=== PATIENT | female | born 1960 | race Caucasian/White ===

== ENCOUNTER → 2016-11-03 | Outpatient (CLI) | payer MEDICAID | LOC: CIMAGING 12:24 | PROVIDERS: ATTEND Family Medicine | DX: Z12.31 Encounter for screening mammogram for malignant neoplasm of breast (principal) | CPT/HCPCS: G0202 ==

== ENCOUNTER 2017-03-23 20:14 | Inpatient (IN) | payer MEDICAID, OTHER ==
[2017-03-23] MEDS ORDERED: CLINDAMYCIN 600 MG/DEXTROSE 50 ML IV ONE (20:50)
[2017-03-23] MEDS ORDERED: NS 1,000 ML IV ONE (20:50)
--- NOTE | 2017-03-23 20:57 | EDPHY ---
H & P Stated Complaint: R jaw swelling/redness post 3 x teeth extraction 1 week ago. Time Seen by Provider: 03/23/17 20:30 HPI/ROS: CHIEF COMPLAINT: Right jaw swelling History by patient HISTORY OF PRESENT ILLNESS: 56-year-old woman presents complaining of pain, swelling and redness on her right lower jaw after tooth extraction 1 week ago. Patient was seen 3 weeks ago and admitted as an inpatient for facial cellulitis related to infected teeth and had an I and D at that time. She was placed on clindamycin and followed up with Oral surgery at [facility] 1 week ago where they removed 3 lower molars. She finished her course of clindamycin and then 3 days ago began having pain and swelling again. She was seen yesterday and started on amoxicillin however she says that the swelling and redness have gotten worse and she is feeling pus draining inside her mouth. She has had a subjective fever at home and feels generally unwell. There has been no vomiting. There is no difficulty breathing or swallowing. REVIEW OF SYSTEMS: As in HPI, and all other systems reviewed and are negative Source: Patient - Personal History Current Tetanus/Diphtheria Vaccine: Yes Current Tetanus Diphtheria and Acellular Pertussis (TDAP): Yes Tetanus Vaccine Date: 2011 - Medical/Surgical History Hx Asthma: Yes Other PMH: hypothyroid, L hip fibro-osseous removal,. chronic pain, asthma, nicorette addiction. arthritis, djd, L4-5, S1 fusion,. balance issues ( partially from meds, prevous chi). ADD. bronchoscopy for aspiration of medication - Social History Smoking Status: Former smoker - Physical Exam Exam: General Appearance: Alert and no distress. Head: normocephalic, atraumatic, no sinus tenderness Face: Positive red swollen tennis ball size area under right mandible with mild tenderness, no fluctuance but firm Eyes: Pupils equal and round no injection. Extraocular movements are intact OP: mucus membranes moist, right posterior molar is absent, positive purulent drainage at site of most proximal removed molar, mild swelling of floor of mouth but soft and non [place] texture, no tonsillar enlargement, no exudates Neck: no meningismus, no bony tenderness Respiratory: Chest is nontender, lungs are clear to auscultation. Cardiac: regular rate and rhythm. Gastrointestinal: Abdomen is soft and nontender, no masses, bowel sounds normal. Musculoskeletal: Neck is supple and nontender. Extremities have full range of motion and are nontender. Skin: No rashes or lesions. Constitutional: Initial Vital Signs Temperature (C) 37.0 C 03/23/17 20:31 Heart Rate 82 03/23/17 20:31 Respiratory Rate 18 03/23/17 20:31 Blood Pressure 149/84 H 03/23/17 20:31 O2 Sat (%) 98 03/23/17 20:31 O2 Delivery Mode Room Air Allergies/Adverse Reactions: Sulfa (Sulfonamide Antibiotics) Allergy (Intermediate, Verified 03/23/17 20:35) Hives Home Medications: Medication Instructions Recorded Levothyroxine Sodium [SYNTHROID] 01/26/10 Albuterol Hfa Anes Only [Proair 2 puffs IH QID 10/09/11 Hfa Icu (RX)] Dextroamphetamine/Amphetamine 15 mg PO 10/09/11 [Dextroamp-Amphet ER 15 mg Cap] Fluticasone Nasal [Flonase Nasal 2 sprays NASAL DAILY 10/09/11 [place] (RX)] Fluticasone/Salmeterol [Advair 1 each IH BID 10/09/11 250-50 Diskus] Gabapentin [Neurontin 100 MG (RX)] 100 mg PO HS 10/09/11 Lasix Unknown Mg Takes Qod 10/09/11 Potasssium Unknown Dose Qod W/ 10/09/11 Lasix Aleve 10/04/13 Claritin 10/04/13 Cymbalta 10/04/13 Amitriptyline HCl 03/23/17 Breo Ellipta 100-25 Mcg INH 03/23/17 Cymbalta 03/23/17 Docusate Calcium 03/23/17 Seroquel 03/23/17 Medical Decision Making ED Course/Re-evaluation: 56-year-old woman presents with persistent and worsening right facial swelling and redness after tooth extraction 1 week ago and recent antibiotic course. Because of the obvious clinical infection patient was started immediately on IV clindamycin. CT scan was obtained which was read by the radiologist as evidence of phlegmon but no clear abscess and no evidence of airway obstruction or involvement. There was concerned about chronic osteo in the mandible. I discussed the case with the hospitalist Dr. Jenkins who accepts the patient for admission for ongoing IV antibiotics. I also discussed the case with Dr. Hanna, on-call for oral surgery who will consult on the patient. I discussed the treatment plan with the patient who understands and is agreeable. - Data Points Laboratory Results: Laboratory Results 03/23/17 21:00 03/23/17 21:00 03/23/17 03/23/17 21:00 21:00 WBC 8.43 10^3/uL 10^3/uL (3.80-9.50) RBC 3.97 10^6/uL L 10^6/uL (4.18-5.33) Hgb 12.1 g/dL L g/dL (12.6-16.3) Hct 35.4 % L % (38.0-47.0) MCV 89.2 fL fL (81.5-99.8) MCH 30.5 pg pg (27.9-34.1) MCHC 34.2 g/dL g/dL (32.4-36.7) RDW 12.5 % % (11.5-15.2) Plt Count 264 10^3/uL 10^3/uL (150-400) MPV 8.2 fL L fL (8.7-11.7) Neut % (Auto) 57.9 % % (39.3-74.2) Lymph % (Auto) 27.9 % % (15.0-45.0) [place] % (Auto) 9.3 % % (4.5-13.0) Eos % (Auto) 3.6 % % (0.6-7.6) Baso % (Auto) 0.9 % % (0.3-1.7) Nucleat RBC Rel Count 0.0 % % (0.0-0.2) Absolute Neuts (auto) 4.89 10^3/uL 10^3/uL (1.70-6.50) Absolute Lymphs (auto) 2.35 10^3/uL 10^3/uL (1.00-3.00) Absolute Monos (auto) 0.78 10^3/uL 10^3/uL (0.30-0.80) Absolute Eos (auto) 0.30 10^3/uL 10^3/uL (0.03-0.40) Absolute Basos (auto) 0.08 10^3/uL 10^3/uL (0.02-0.10) Absolute Nucleated RBC 0.00 10^3/uL 10^3/uL (0-0.01) Immature Gran % 0.4 % % (0.0-1.1) Immature Gran # 0.03 10^3/uL 10^3/uL (0.00-0.10) Sodium 136 mEq/L mEq/L (135-145) Potassium 4.1 mEq/L mEq/L (3.5-5.2) Chloride 100 mEq/L mEq/L (97-110) Carbon Dioxide 22 mEq/l mEq/l (22-31) Anion Gap 14 mEq/L mEq/L (8-16) BUN 21 mg/dL mg/dL (7-23) Creatinine 0.7 mg/dL mg/dL (0.6-1.0) Estimated GFR > 60 Glucose 95 mg/dL mg/dL (70-100) Calcium 9.3 mg/dL mg/dL (8.5-10.4) Medications Given: Discontinued Medications Clindamycin Phosphate/Dextrose (Cleocin 600 Mg (Premix)) 50 mls @ 100 mls/hr IV EDNOW ONE PRN Reason: Protocol Stop: 03/23/17 21:19 Last Admin: 03/23/17 21:04 Dose: 50 mls Sodium Chloride (Ns) 1,000 mls @ 0 mls/hr IV ONCE ONE; Wide Open PRN Reason: Protocol Stop: 03/23/17 20:51 Last Admin: 03/23/17 20:57 Dose: Not Given Departure - Departure [place]position: [place] In[facility] Acute Clinical Impression: Cellulitis, face Condition: Fair Referrals: Isabel Wnyn MD [Primary Care Provider] - As per Instructions
[2017-03-23] MEDS ORDERED: IOPAMIDOL (ISOVUE-300) 100 ML BTL ONE (21:09)
[2017-03-23 21:14] LABS: PLATELET COUNT 264 10^3/uL (150-400)
[2017-03-23] MEDS ORDERED: ONDANSETRON DISINTEGRATING 4 MG TAB PO PRN (22:33)
[2017-03-23] MEDS ORDERED: ONDANSETRON 4 MG/2 ML VIAL IVP PRN (22:33)
[2017-03-23] MEDS ORDERED: ACETAMINOPHEN 325 MG TAB PO PRN (22:33)
--- NOTE | 2017-03-24 01:04 | PDGENHP ---
History and Physical - Chief Complaint Facial pain - History of Present Illness 56 yo F w/ hx of hypothyroid, asthma, neuropathy, TBI, and ADD presented to [facility] with facial pain. She first noticed R facial pain on 02/21 after a recent dental procedure. She was admitted to [facility] where she was treated for infection with I&D and IV antibiotics. She was discharged with oral clindamycin with good improvement. She had 3 teeth pulled one week ago at dental school. She was on clindamycin continuously until 03/19. She returned to the dental school yesterday with worsening symptoms after stopping abx and was placed on Amoxicillin with little improvement. As a result she presented to the [facility] today for further evaluation. She mostly complains of R facial pain and low grade, subjective fevers. She is being admitted for IV abx and surgical consultation. History Information - Allergies/Home Medication List Allergies/Adverse Reactions: Sulfa (Sulfonamide Antibiotics) Allergy (Intermediate, Verified 03/23/17 20:35) Hives Home Medications: Levothyroxine Sodium [SYNTHROID] 01/26/10 [Last Taken 11/10/11 07:00] Albuterol Hfa Anes Only [Proair Hfa Icu (RX)] 2 puffs IH QID 10/09/11 [Last Taken 11/10/11 07:00] Dextroamphetamine/Amphetamine [Dextroamp-Amphet ER 15 mg Cap] 15 mg PO 10/09/11 [Last Taken 11/10/11 07:00] Fluticasone Nasal [Flonase Nasal [place] (RX)] 2 sprays NASAL DAILY 10/09/11 [ Last Taken 11/10/11 07:00] Fluticasone/Salmeterol [Advair 250-50 Diskus] 1 each IH BID 10/09/11 [Last Taken 11/10/11 07:00] Gabapentin [Neurontin 100 MG (RX)] 100 mg PO HS 10/09/11 [Last Taken 11/09/11 20 :00] Lasix Unknown Mg Takes Qod 10/09/11 [Last Taken 11/10/11 07:00] Potasssium Unknown Dose Qod W/ Lasix 10/09/11 [Last Taken 11/10/11 07:00] Aleve 10/04/13 [Last Taken Unknown] Claritin 10/04/13 [Last Taken Unknown] Cymbalta 10/04/13 [Last Taken Unknown] Amitriptyline HCl 03/23/17 [Last Taken Unknown] Breo Ellipta 100-25 Mcg INH 03/23/17 [Last Taken Unknown] Cymbalta 03/23/17 [Last Taken Unknown] Docusate Calcium 03/23/17 [Last Taken Unknown] Seroquel 03/23/17 [Last Taken Unknown] I have personally reviewed and updated: family history, medical history - Past Medical History arthritis, asthma Additional medical history: Neuropathy. ADD. TBI - Surgical History Reports: spinal surgery Additional surgical history: TBI c/b epidural hematoma requiring evacuation - Family History Positive for: cancer, CAD - Social History Smoking Status: Former smoker Review of Systems Review of Systems: ROS: 10pt was reviewed & negative except for what was stated in HPI & below Physical Exam Physical Exam: Temp Pulse Resp BP Pulse Ox 36.6 C 87 16 145/82 H 97 03/24/17 00:32 03/24/17 00:32 03/24/17 00:32 03/24/17 00:32 03/24/17 00:32 Constitutional: no apparent distress, uncomfortable Eyes: PERRL, EOMI Ears, Nose, Mouth, Throat: moist mucous membranes, other (R mandibular swelling , erythema. R mandibular gum s/p tooth extractions) Cardiovascular: regular rate and rhythym, no murmur, rub, or gallop Respiratory: no respiratory distress, no rales or rhonchi Gastrointestinal: normoactive bowel sounds, soft, non-tender abdomen Skin: warm, normal color Musculoskeletal: full muscle strength, no muscle tenderness Neurologic: AAOx3, CN II-XII Intact Psychiatric: interacting appropriately, not anxious Lab Data & Imaging Review 03/23/17 21:00 03/23/17 21:00 WBC 8.43 10^3/uL (3.80-9.50) 03/23/17 21:00 RBC 3.97 10^6/uL (4.18-5.33) L 03/23/17 21:00 Hgb 12.1 g/dL (12.6-16.3) L 03/23/17 21:00 Hct 35.4 % (38.0-47.0) L 03/23/17 21:00 MCV 89.2 fL (81.5-99.8) 03/23/17 21:00 MCH 30.5 pg (27.9-34.1) 03/23/17 21:00 MCHC 34.2 g/dL (32.4-36.7) 03/23/17 21:00 RDW 12.5 % (11.5-15.2) 03/23/17 21:00 Plt Count 264 10^3/uL (150-400) 03/23/17 21:00 MPV 8.2 fL (8.7-11.7) L 03/23/17 21:00 Neut % (Auto) 57.9 % (39.3-74.2) 03/23/17 21:00 Lymph % (Auto) 27.9 % (15.0-45.0) 03/23/17 21:00 [place] % (Auto) 9.3 % (4.5-13.0) 03/23/17 21:00 Eos % (Auto) 3.6 % (0.6-7.6) 03/23/17 21:00 Baso % (Auto) 0.9 % (0.3-1.7) 03/23/17 21:00 Nucleat RBC Rel Count 0.0 % (0.0-0.2) 03/23/17 21:00 Absolute Neuts (auto) 4.89 10^3/uL (1.70-6.50) 03/23/17 21:00 Absolute Lymphs (auto) 2.35 10^3/uL (1.00-3.00) 03/23/17 21:00 Absolute Monos (auto) 0.78 10^3/uL (0.30-0.80) 03/23/17 21:00 Absolute Eos (auto) 0.30 10^3/uL (0.03-0.40) 03/23/17 21:00 Absolute Basos (auto) 0.08 10^3/uL (0.02-0.10) 03/23/17 21:00 Absolute Nucleated RBC 0.00 10^3/uL (0-0.01) 03/23/17 21:00 Immature Gran % 0.4 % (0.0-1.1) 03/23/17 21:00 Immature Gran # 0.03 10^3/uL (0.00-0.10) 03/23/17 21:00 Sodium 136 mEq/L (135-145) 03/23/17 21:00 Potassium 4.1 mEq/L (3.5-5.2) 03/23/17 21:00 Chloride 100 mEq/L (97-110) 03/23/17 21:00 Carbon Dioxide 22 mEq/l (22-31) 03/23/17 21:00 Anion Gap 14 mEq/L (8-16) 03/23/17 21:00 BUN 21 mg/dL (7-23) 03/23/17 21:00 Creatinine 0.7 mg/dL (0.6-1.0) 03/23/17 21:00 Estimated GFR > 60 03/23/17 21:00 Glucose 95 mg/dL (70-100) 03/23/17 21:00 Calcium 9.3 mg/dL (8.5-10.4) 03/23/17 21:00 Imaging Review: Imaging Impressions Neck CT 03/23/17 20:51 Impression: Evidence of tooth extraction recently of the 28th through 31st teeth left mandible, with extreme lucency of the bone and absence of the anterior and inferior cortex suggesting underlying osteomyelitis. Surrounding phlegmon and inflammatory change. Results called and discussed with Ana Srivastava M.D., on March 23, 2017 at 2232. Assessment & Plan Assessment: 56 yo F w/ hx of hypothyroid, asthma, neuropathy, TBI, and ADD presented to [facility] with facial cellulitis and likely underlying mandibular OM. Plan: 1. Facial cellulitis - Originating from odontogenic infection and likely complicated by underlying osteomyelitis per CT findings. Patient initially noted infection on 02/21 and has had recurrent issues since. She was on clindamycin from 02/21 until 03/19. Just a few days after stopping antibiotics her symptoms returned. Amoxicillin did not help improver her symptoms. - Blood cultures, Zosyn IV - OMF consulted, will see patient in the morning - Maintain NPO for now until surgery can evaluate - Infectious disease consult placed 2. Asthma - No e/o acute exacerbation. On Breo and albuterol PRN as outpatient. 3. Hx TBI - Complicated by ADD and insomnia. 4. OA- b/l knees 5. Hypothyroid - On LTX as outpatient. Diet - NPO Code - Full Ppx - SCDs Dispo - Admit to observation status
[2017-03-24] MEDS ORDERED: AMITRIPTYLINE HCL 100 MG TAB PO ONE (01:09)
[2017-03-24] MEDS ORDERED: GABAPENTIN 300 MG CAP PO ONE (01:10)
[2017-03-24] MEDS: oxyCODONE IR 5 MG TAB PO PRN ×4 (01:29→20:59)
[2017-03-24] MEDS: PIPERACILLIN/TAZO 3.375 GM/DEX 50 ML IV SCH ×5 (01:30→23:52)
[2017-03-24 05:34] LABS: PLATELET COUNT 250 10^3/uL (150-400)
[2017-03-24] MEDS ORDERED: CLINDAMYCIN 900 MG/DEXTROSE 50 ML IV SCH (06:00)
[2017-03-24] MEDS: LIDOCAINE 5% 1 EA PATCH TD SCH ×2 (09:02→12:57)
--- NOTE | 2017-03-24 09:49 | PDCONSULT ---
Ip Litigation Associate Note: Oral Surgery consultation: With regards to Bonny Reich, 56 yo F 10 day s/p extraction teeth lower right posterior at [facility]. Reports swelling of lower right posterior region since mid-February and significant swelling starting 48 hrs ago when she stopped Clindamycin and started Amoxicillin. Patient reports that the teeth were mobile at time of extraction and were "easy" to get out. Reviewed PMH, review of systems. Meds: Zosyn IV PE: AAOx4, no acute distress H: Right lower facial edema and firmness which extends past midline of submandibular region. Erythema of right jowl. Unable to palpate right mandibular border due to edema rolling over from buccal vestibule to right submandibular region. Mild tenderness to palpation. O: Extration sites right mandibular posterior closed, no drainage, edema to alveolar crest and firm of right FOM, unable to gain bimanual palpation due to firmness of FOM. Uvula midline. Right mandibular buccal vestibule firmness and significant edema. DESTINY 40+mm w/o difficulty on opening. MP 1. Good OH. Neck: No gross CLAD, trachea midline, neg dysphagia, neg dysphonia, neg dyspnea Imaging: CT neck / contrast: Right mandibular vestibule with expansion of periosteum at right posterior, extraction sites present. Fat stranding right mandibular region. Trachea midline. A: 10 days s/p extraction 3 teeth mandibular right posterior with right vestibular and submandibular abscess with poor response to antibiotic therapy. P: NPO at 12am 03/25/17 To OR with [facility] for I&D right mandibular posterior. Continue IV Zosyn Vee Mckinney DDS FS [phone]
[2017-03-24] MEDS ORDERED: FLUTICASONE/SALMETER 250/50MCG DISKUS IH SCH (11:00)
[2017-03-24] MEDS ORDERED: HYDROCODONE/APAP 5/325 TAB PO PRN (11:00)
[2017-03-24] MEDS ORDERED: ALBUTEROL HFA ANES ONLY 200 PUFFS/8.5 GM MDI IH PRN (11:00)
[2017-03-24] MEDS ORDERED: LISDEXAMFETAMINE DIMESYLATE 30 MG PO SCH (11:00)
[2017-03-24] MEDS: DULoxetine 60 MG CAP PO SCH ×2 (12:22→20:59)
[2017-03-24] MEDS: FUROSEMIDE 20 MG TAB PO SCH (12:22)
[2017-03-24] MEDS: POTASSIUM CL 10 MEQ TAB PO SCH (12:23)
[2017-03-24] MEDS: LEVOTHYROXINE 50 MCG TAB PO SCH (12:23)
[2017-03-24] MEDS: FLUTICASONE NASAL 120 SPRAYS/16 GM MDI EACHNARE SCH (12:26)
[2017-03-24] MEDS: CETIRIZINE 10 MG TAB PO SCH (12:56)
[2017-03-24] MEDS: DOCUSATE SODIUM 100 MG CAP PO SCH (12:56)
--- NOTE | 2017-03-24 13:47 | HOSPPROG ---
Hospitalist Progress Note Assessment/Plan: 56 yo F w/ hx of hypothyroid, asthma, neuropathy, TBI, and ADD presented to [facility] with facial cellulitis and likely underlying infection. First encounter,chart reviewed. D/W Dr Mckinney. Plan: 1. Facial cellulitis - Originating from odontogenic infection Patient initially noted infection on 02/21 and has had recurrent issues since. She was on clindamycin from 02/21 until 03/19. Just a few days after stopping antibiotics her symptoms returned. Amoxicillin did not help improver her symptoms. Blood cultures, Zosyn IV OMF consulted, appreciate assistance Infectious disease consult placed 2. Asthma - No e/o acute exacerbation. On Breo and albuterol PRN as outpatient. 3. Hx TBI - Complicated by ADD and insomnia. 4. OA- b/l knees 5. Hypothyroid - On LTX as outpatient. Diet - regular Code - Full Ppx - SCDs Dispo - Change to inpt requires surgical intervention in am cont supportive care IV abx and pain meds Subjective: Feeling ok. Having pain in face. No other specific issues. Objective: Vital Signs Temp Pulse Resp BP Pulse Ox 36.6 C 73 14 120/76 92 03/24/17 08:00 03/24/17 08:00 03/24/17 08:00 03/24/17 08:00 03/24/17 08:00 Laboratory Results 03/24/17 04:20 03/24/17 04:20 03/23/17 03/24/17 03/25/17 05:59 05:59 05:59 Intake Total 50 Balance 50 - Physical Exam Constitutional: no apparent distress, appears nourished, uncomfortable Eyes: PERRL, anicteric sclera, EOMI Ears, Nose, Mouth, Throat: moist mucous membranes, hearing normal, ears appear normal, other (swelling) Cardiovascular: regular rate and rhythym, No JVD, No edema Respiratory: no respiratory distress, no rales or rhonchi, reduced air movement Gastrointestinal: normoactive bowel sounds, No tenderness, No ascites Skin: warm, erythema, No mottled Musculoskeletal: full muscle strength, normal joint ROM, no joint effusions Neurologic: AAOx3 Psychiatric: interacting appropriately, not anxious, not encephalopathic, thought process linear ICD10 Worksheet Patient Problems: Problems Problem Status Onset Cellulitis, face Acute
--- NOTE | 2017-03-24 14:32 | PDMN ---
Medical Necessity Medical necessity: C/M review: Patient meets INPT criteria under [facility] M-70 Cellulitis: Acute and persistent worsening facial cellulitis requiring planned Infectious disease consult, 03/25/2017 surgical intervention, ongoing IV Zosyn Q 6 hrs., comorbid history of odontogenic infection initially noted 02/21/2017 with recurrent issues, treated with oral clindamycin from -03/19/17, a few days after stiopping oral antibiotics, symptoms returned, amoxicillin did not improve symptoms, failed outpt. therapy, asthma, hypothyroidism, history of traumatic brain injury, ADD, insomnia. 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
[2017-03-24] MEDS: IBUPROFEN 600 MG TAB PO PRN ×2 (15:57→21:04)
--- NOTE | 2017-03-24 16:33 | ASMTCMCOM ---
CM Note CM Note Notes: Pt. is a 56-year-old disabled woman admitted due to facial cellulitis from having an infection since February. Recently more teeth pulled. Hx. ADD, insomnia, TBI, and asthma. Pt. may need IV antibiotics at d/c. [facility] patient. CM to follow for d/c POC. Date Signed: 03/24/2017 04:32 PM Electronically Signed By:Lilibeth King LCSW
--- NOTE | 2017-03-24 18:41 | GCON ---
[f rep st] CONSULTATION INFECTIOUS DISEASE CONSULTATION DATE OF CONSULTATION: 03/24/2017 REFERRING PHYSICIAN: Abdirahman Jenkins MD REASON FOR CONSULTATION: Facial cellulitis with abscess and osteomyelitis. CHIEF COMPLAINT: Swelling and pain of the right jaw. HISTORY OF PRESENT ILLNESS: This is a 56-year-old female, with a past medical history sign ificant for hypothyroidism, asthma, neuropathy, TBI, who came in with ongoing facial pain and swellin g. History dates back to February 21, when she recently had a dental procedure. A few days after that, she got admitted to [facility] after increasing swelling and pain. She apparently an I and D and was on antibiotics there. She was discharged on clindamycin and had done well. She continued to tejeda ve pain in the lower part of her right gum line and she ended up having 3 more teeth pulled at [facility]. She was on antibiotics during that time and completed her last dose around March 18. Because of new swelling, pain and redness, she was started on amoxicillin a couple of days ago and that did not improve her symptoms, so she came in here for further evaluation. She had a neck CT done, which showed lucency of the bone, and absence of anterior inferior cortex sug gesting possible underlying osteomyelitis and phlegmonous inflammatory changes as well surrounding th e area. She had blood cultures x2 sets drawn and those are pending. She was started empirically on Zosyn. Infectious Disease is now consulted for further evaluation and opinion. REVIEW OF SYSTEMS: GENERAL: She has had some low-grade fevers. No shaking chills. HEAD: Mild chr onic headaches. EYES: No change in vision. ENT: No sore throat, difficulty swallowing, ear pain o r ear drainage. CARDIOVASCULAR: No chest pain or rapid heartbeat. RESPIRATORY: No shortness of br eath, cough, or sputum production. ABDOMEN: No nausea, vomiting, abdominal pain, diarrhea. She has some mild nausea. : No dysuria. MUSCULOSKELETAL: No increased joint pains or muscle aches. SKI N: No other rashes. PAST MEDICAL HISTORY: Significant for hypothyroidism, asthma, neuropathy, traumatic brain injury, AD D, osteoarthritis. PAST SURGICAL HISTORY: Significant for spine surgery, epidural hematoma requiring evacuation. ALLERGIES: To Bactrim, which gives her a rash. SOCIAL HISTORY: She is a former smoker. She drinks alcohol socially. FAMILY HISTORY: Significant for cancer and coronary artery disease. MEDICATIONS: As per MAR. PHYSICAL EXAMINATION: VITAL SIGNS: Temperature currently 36.6, pulse is 73, blood pressure 120/76, respiratory rate 14, saturation 92% on room air. GENERAL: Patient is resting in the chair, in no ac richard respiratory distress. Awake, alert and oriented x3. HEENT: Head is normocephalic, atraumatic. Pupils are equally round and reactive to light. Oropharynx: She is able to open her mouth moderate ly. She has pain involving the right side. She has swelling involving the lower jawline and in the submandibular area with some mild erythema at left base. It is indurated and tender on palpation. S he does have missing teeth on the right posterior gumline with intermittent erythema noted. It is te nder to touch. No thrush. CARDIOVASCULAR: S1, S2. Regular rate and rhythm. No murmurs appreciate d. RESPIRATORY: Clear to auscultation bilaterally. No rhonchi or rales. ABDOMEN: Positive bowel sounds in all quadrants. Soft, nontender, nondistended. No organomegaly appreciated. EXTREMITIES: No lower extremity edema. MUSCULOSKELETAL: No joint effusions or pain on palpation of the joints. LABORATORY DATA: White blood cell count is 7.9, hemoglobin 12.1, platelets are 215, neutrophil count is 59%. Sodium 139, potassium 4.5, chloride 104, bicarb 25, BUN is 18, creatinine is 0.8. LFTs are within normal range. C-reactive protein is 27. Blood cultures in 2 sets are pending. Imaging results have been reviewed by me and stated above. ASSESSMENT: Right submandibular swelling that is likely abscess and cellulitis with possible underly ing osteomyelitis. PLAN: At this point in time, the oral surgeon has come by, and we appreciate their assistance in car e for this patient. They are planning to take her to the OR tomorrow for I and D. Recommend taking cultures and taking a biopsy to assess for osteomyelitis. Continue with Zosyn therapy for now. Awai t blood cultures. Plan of care was discussed in detail with the patient. I thank you very much for the opportunity to care for your patient in consultation. /[id number]/MODL
[2017-03-24] MEDS: GABAPENTIN 100 MG CAP PO SCH (20:59)
[2017-03-24] MEDS: AMITRIPTYLINE HCL 100 MG TAB PO SCH (21:00)
[2017-03-24] MEDS: PATCH REMOVAL 1 EA PATCH TD SCH (21:01)
[2017-03-24] MEDS: FLUTICASONE/SALMETER 250/50MCG DISKUS IH SCH (21:15)
[2017-03-25] MEDS: PIPERACILLIN/TAZO 3.375 GM/DEX 50 ML IV SCH ×4 (05:11→23:44)
--- NOTE | 2017-03-25 07:33 | PDHPUP ---
History & Physical Update H&P update statement: This history and physical update is based on an assessment of the patient which was completed after admission or registration (within 24 hours), but prior to the surgery/procedure.
[2017-03-25] MEDS ORDERED: LIDOCAINE 1% 300 MG/30 ML SDV ONE (07:41)
[2017-03-25] MEDS ORDERED: BUPIVACAINE/EPI 0.5% 30 ML SDV ONE (07:47)
--- NOTE | 2017-03-25 08:06 | PDANEPAE ---
ANE History of Present Illness mandibular abscess here for I+D ANE Past Medical History - Cardiovascular History Hx CHF / Valvular Disease: Yes - Pulmonary History Hx Asthma/Reactive Airway Disease: Yes Hx Oxygen in Use at Home: Yes Hx Sleep Apnea: No Sleep Apnea Screening Result - Last Documented: Positive - Endocrine History Hx Diabetes: No Hypothyroid: Yes ANE Review of Systems Review of Systems: - Exercise capacity Exercise capacity: >=4 METS ANE Patient History - Allergies Allergies/Adverse Reactions: Sulfa (Sulfonamide Antibiotics) Allergy (Intermediate, Verified 03/23/17 20:35) Hives - Home Medications Home medications: home medication list seen and reviewed Home Medications: Levothyroxine Sodium [SYNTHROID] 50 mcg PO DAILY AT 10AM 01/26/10 [Last Taken ] Albuterol Hfa Anes Only [Proair Hfa Icu (RX)] 2 puffs IH QID PRN 10/09/11 [Last Taken 11/10/11 07:00] Fluticasone Nasal [Flonase Nasal [place] (RX)] 2 sprays NASAL DAILY 10/09/11 [ Last Taken 03/23/17] Fluticasone/Salmeterol [Advair 250-50 Diskus] 1 each IH BID 10/09/11 [Last Taken 03/23/17] Gabapentin [Neurontin 100 MG (RX)] 600 mg PO HS 10/09/11 [Last Taken 03/23/17] AMITRIPTYLINE HCL [Amitriptyline 100 mg] 100 mg PO HS 03/24/17 [Last Taken 03/23] Aspirin [Aspirin 81mg (*)] 81 mg PO DAILY 03/24/17 [Last Taken 03/23/17] Calcium Polycarbophil [FIBERCON] 625 mg PO DAILY 03/24/17 [Last Taken 03/23/17] DULoxetine [Cymbalta 60 MG (*)] 60 mg PO BID 03/24/17 [Last Taken 03/23/17] Docusate Sodium [Colace 100 MG (*)] 100 mg PO DAILY 03/24/17 [Last Taken ] Ferrous Sulfate [Ferrous Sulf 325 MG (*)] 325 mg PO DAILY 03/24/17 [Last Taken 03/23/17] Furosemide [Lasix 20 MG (*)] 20 mg PO DAILY 03/24/17 [Last Taken 03/23/17] Herbals/Supplements -Info Only 1 ea PO DAILY 03/24/17 [Last Taken Unknown] Hydrocodone/Acetaminophen [[place] 5/325 (*)] 1 - 2 tab PO Q6H PRN 03/24/17 [Last Taken 03/23/17] Ibuprofen [Motrin (*)] 600 mg PO TIDMEAL 03/24/17 [Last Taken 03/23/17] Lidocaine 5% [Lidoderm 5% Patch (*)] 2 ea TD DAILY 03/24/17 [Last Taken 03/24/17 ] Lisdexamfetamine Dimesylate [Vyvanse] 30 mg PO DAILY 03/24/17 [Last Taken ] Loratadine [Claritin] 10 mg PO DAILY 03/24/17 [Last Taken 03/23/17] [place]-3 Fatty Acids [Fish Oil 1000 mg (*)] 1,000 mg PO DAILY 03/24/17 [Last Taken 03/23/17] Potassium Chloride 10 meq PO DAILY 03/24/17 [Last Taken 03/23/17] clonIDINE [Catapres (*)] 0.1 mg PO TID 03/24/17 [Last Taken 03/23/17] - NPO status NPO Status: no food or drink >8 hours NPO Since - Liquids (Date): 03/25/17 NPO Since - Liquids (Time): 00:00 NPO Since - Solids (Date): 03/25/17 NPO Since - Solids (Time): 00:00 - Anes Hx Anes Hx: no prior problems - Smoking Hx Smoking Status: Former smoker - Alcohol Use Alcohol Use: Rarely - Family Anes Hx Family Anes Hx: none ANE Labs/Vital Signs - Labs Result Diagrams: 03/24/17 04:20 03/24/17 04:20 - Vital Signs Blood Pressure: 129/84 Heart Rate: 75 Respiratory Rate: 16 O2 Sat (%): 96 Height: 170.18 cm Weight: 111.13 kg ANE Physical Exam - Airway Neck exam: FROM Mallampati Score: Class 3 Mouth exam: poor dentition - Pulmonary Pulmonary: no respiratory distress - Cardiovascular Cardiovascular: regular rate and rhythym - ASA Status ASA Status: III ANE Anesthesia Plan Anesthesia Plan: general endotracheal anesthesia
[2017-03-25] MEDS ORDERED: MIDAZOLAM 2 MG/2 ML VIAL IVP ONE (08:07)
[2017-03-25] MEDS ORDERED: MIDAZOLAM 2 MG/2 ML VIAL ONE ×2 (08:11→08:14)
[2017-03-25] MEDS ORDERED: fentaNYL 100 MCG/2 ML INJ ONE ×3 (08:12→09:37)
[2017-03-25] MEDS ORDERED: PROPOFOL 200 MG/20 ML VIAL ONE (08:13)
[2017-03-25] MEDS ORDERED: ROCURONIUM 50 MG/5 ML VIAL ONE (08:14)
[2017-03-25] MEDS ORDERED: LIDOCAINE 2% 100 MG/5 ML SYR ONE (08:14)
[2017-03-25] MEDS ORDERED: NON-FORMULARY NEW DRUG (Loratadine [Claritin] 10 MG) PO SCH (09:00)
[2017-03-25] MEDS ORDERED: NON-FORMULARY NEW DRUG (Calcium Polycarbophil [Fibercon] 625 MG) PO SCH (09:00)
[2017-03-25] MEDS ORDERED: Herbals/Supplements -Info Only PO SCH (09:00)
--- NOTE | 2017-03-25 09:34 | POSTOPPROG ---
Post Op Note Date of Operation: 03/25/17 Surgeon: Vee Mckinney Pre-op Diagnosis: right submandibular abscess/possible osteomyelitis right mandible Post-op Diagnosis: Osteolytic infection right mandible, right submandibular cellulitis Procedure: Extraoral I and D right mandible, D and C right mandible, Ext #27 tooth Findings: Loose bony fragment right mandible Inf/Abcess present in the surg proc area at time of surgery?: Yes Depth: Deep Incisional (Fascial) (right submandibular/buccal abscess) EBL: Minimal Total fluids administered: 1L Complications: None Drains: [place] (right neck) Specimen(s): 1) Right mandible 2) Culture right submandibular
[2017-03-25] MEDS ORDERED: ONDANSETRON 4 MG/2 ML VIAL IVP PRN (09:35)
[2017-03-25] MEDS ORDERED: NALOXONE HCL 0.4 MG/ML INJ IVP PRN (09:35)
--- NOTE | 2017-03-25 09:35 | POSTANESTH ---
Post Anesthetic Evaluation Cardiovascular Status: Normal, Stable, Similar to Pre-Op Cond Respiratory Status: Normal, Stable, Similar to Pre-op Cond. Level of Consciousness/Mental Status: Can Participate in Eval, Alert and Oriented Pain Control: Adequate, Prn Tx Ordered Nausea/Vomiting Control: Adequate, Prn Tx Ordered Complications Possibly Related to Anesthesia: None Noted
[2017-03-25] MEDS: fentaNYL 100 MCG/2 ML INJ IVP PRN ×3 (09:41→10:16)
[2017-03-25] MEDS ORDERED: HYDROmorphONE/DILAUDID 1 MG/ML INJ ONE (10:00)
[2017-03-25] MEDS: HYDROmorphONE/DILAUDID 1 MG/ML INJ IVP PRN ×2 (10:01→10:20)
--- NOTE | 2017-03-25 10:09 | SUROPNOTE ---
[facility] Operative Report - Surgery Preoperative Diagnosis: Right submandibular abscess of odontogenic origin Postoperative diagnosis: Right submandibular cellulitis with possible right mandible osteomyelitis Procedure: 1) Right mandibular intraoral debridement and curettage 2) Extraction #27 3) Extraoral right submandibular incision and drainage Surgeon: Vee Mckinney DDS Anesthesia: GETA with 7cc Marcaine 0.5% with 1:200k epi EBL: 25 ml IVF: 1 liter crystalloid Culture: 1) Right submandibular region Findings: Osteolytic infection right mandible with mobility of tooth #27, right submandibular celluitis Drains: Darlin right neck Specimens: 1) right mandible Complications: None Indication: Right facial abscess with right lower lip paresthesia Benefits, risks, and alternatives were explained to the patient who voiced understanding of the information. Her questions sought and answered. Consent signed and patient marked and witnessed by OR staff. Bonny was brought back to OR by staff, positioned supine on OR bed and secured. Monitors placed including but not limited to blood pressure cuff, EKG, and pulse oximeter and noted to be functioning property. GA induced and patient orally intubated and tube secured to left side of mouth by anesthesia. Eyes closed and covered with tape. Throat pack was placed. Patient was prepped and drapped in sterile fashion. A time out was called and all teams were in agreement of patient and procedure. Intraoral local given and additional needle used for local anesthesia to the skin of right neck. Bite block placed left side of mouth. 15 blade used to make crestal incision from #27 to retromolar region. Periosteal used to reflect buccal and lingual FTMPF. Gross granulation tissue present from #27 distal to 31 region. Buccal plate absent from #31 area to distal of 26 to the level of the right mental foramina. Thick, tenuous periosteum present. Bony sequestrum removed and sent for specimen. Debridement of previous extraction sites with curetted and irrigated well. #27 with 2+ mobility removed with periosteal due to significant bone loss and encompassed in granulation tissue. WESTLEY lying in the inferior aspect of surgical site due to gross bone loss. Significant hemorrhage of tissue during debridement. Periosteal used to create lingual subperiosteal envelope, no purulence encountered. Irrigated site well and surgicel placed into surgical site to gain hemostasis. Primary closure with 3-0 CG, interrupted with 5mm between all sutures in order for drainage. Marking pen used to deena mandibular border and 1.5cm blow border for extraoral incision site. Prepped skin with betadine swabs x3. 15 blade used to make 2cm submandibular incision. Blunt dissection with hemostat to mandibular border. Lingual and buccal access without any drainage. Cultured submandibular access. Placed darlin to lingual border and secured with 3-0 silk suture 120cc of NS irrigation used. Irrigated mouth with NS, throat pack removed with suction and bite block removed. Patient's face cleaned and dried. Fluffs and gauze wrap placed over darlin/extraoral site for drainage. Tape removed from patient's eyes. Patient awoke in OR and extubated. Transferred to PACU w/o complications. Patient to transfer back to floor for recovery. Vee Mckinney DDS
[2017-03-25] MEDS: FLUTICASONE/SALMETER 250/50MCG DISKUS IH SCH ×2 (10:29→21:39)
[2017-03-25] MEDS: IBUPROFEN 600 MG TAB PO PRN ×2 (10:55→16:48)
[2017-03-25] MEDS: oxyCODONE IR 5 MG TAB PO PRN ×3 (10:56→21:30)
[2017-03-25] MEDS: DULoxetine 60 MG CAP PO SCH ×2 (10:56→20:29)
[2017-03-25] MEDS: LEVOTHYROXINE 50 MCG TAB PO SCH (11:28)
[2017-03-25] MEDS: CETIRIZINE 10 MG TAB PO SCH (11:28)
[2017-03-25] MEDS: POTASSIUM CL 10 MEQ TAB PO SCH (11:28)
[2017-03-25] MEDS: DOCUSATE SODIUM 100 MG CAP PO SCH (11:28)
[2017-03-25] MEDS: FERROUS SULFATE 325 MG TAB PO SCH (11:29)
[2017-03-25] MEDS: FUROSEMIDE 20 MG TAB PO SCH (11:34)
[2017-03-25] MEDS: FLUTICASONE NASAL 120 SPRAYS/16 GM MDI EACHNARE SCH (11:36)
[2017-03-25] MEDS: LIDOCAINE 5% 1 EA PATCH TD SCH ×2 (11:37)
--- NOTE | 2017-03-25 11:37 | ASMTCMCOM ---
CM Note CM Note Notes: Patient in surgery today for jaw infection. Likely to need termite control servicer IV antibiotics. Will place referrals for infusion services. CM to follow. Date Signed: 03/25/2017 11:36 AM Electronically Signed By:Sherita Olivia RN
[2017-03-25] MEDS: PSYLLIUM METAMUCIL 1 PKT PO SCH (11:38)
[2017-03-25] MEDS: LISDEXAMFETAMINE DIMESYLATE 30 MG PO SCH (11:38)
--- NOTE | 2017-03-25 12:59 | HOSPPROG ---
Hospitalist Progress Note Assessment/Plan: 56 yo F w/ hx of hypothyroid, asthma, neuropathy, TBI, and ADD presented to [facility] [place] with facial cellulitis and likely underlying infection. D/W Dr Mckinney. Plan: 1. Facial cellulitis - Originating from odontogenic infection Patient initially noted infection on 02/21 and has had recurrent issues since. She was on clindamycin from 02/21 until 03/19. Just a few days after stopping antibiotics her symptoms returned. Amoxicillin did not help improver her symptoms. Blood cultures, Zosyn IV OMF to OR thsi am, appreciate assistance Infectious disease following 2. Asthma - No e/o acute exacerbation. On Breo and albuterol PRN as outpatient. 3. Hx TBI - Complicated by ADD and insomnia. 4. OA- b/l knees 5. Hypothyroid - On LTX as outpatient. 6. Osteo- POD #0 drain in jaw cultures pending Diet - regular Code - Full Ppx - SCDs Dispo -Will require IV abx cont supportive care Subjective: Tired after surgery. No pain currently. Objective: Vital Signs Temp Pulse Resp BP Pulse Ox 36.1 C 74 18 130/81 H 94 03/25/17 12:44 03/25/17 12:44 03/25/17 12:44 03/25/17 12:44 03/25/17 12:44 Microbiology 03/25/17 08:45 Gram Stain - Final Other - Tissue 03/25/17 08:45 Gram Stain - Final Other - Eswab 03/25/17 08:45 Mycobacterial Smear (JIM) - Final Other - Eswab Mycobacterial Culture - Final 03/24/17 03/25/17 03/26/17 05:59 05:59 05:59 Intake Total 840 820 Balance 840 820 - Physical Exam Constitutional: appears nourished, not in pain, uncomfortable Eyes: PERRL, anicteric sclera, EOMI Ears, Nose, Mouth, Throat: ears appear normal, poor dentition, other (zafar drain) Cardiovascular: regular rate and rhythym, No JVD, No edema Respiratory: no respiratory distress, no rales or rhonchi, reduced air movement Gastrointestinal: normoactive bowel sounds, No tenderness, No ascites Skin: warm, erythema, No mottled Musculoskeletal: normal joint ROM, no joint effusions, generalized weakness Neurologic: AAOx3 Psychiatric: not anxious, not encephalopathic, poor insight, poor judgement ICD10 Worksheet Patient Problems: Problems Problem Status Onset Cellulitis, face Acute
--- NOTE | 2017-03-25 16:15 | PCMIDPN ---
Assessment/Plan: Assessment/Plan: 1. Right submandibular abscess with likely right mandible osteomyelitis: - s/p i & D and biopsy - Currently on zosyn. Likely to narrow to invanz - Awaiting cultures, path. - Discussed picc line, likely prolonged course of IV antibiotics, follow up etc. -labs stable. - blood cx 03/23 ngtd -abscess cs: GS no org, culture pending. REviewed with patient. Meds zosyn Subjective: afebrile. s/p surgery. feeling better. less swelling. drain in place. denies diarrhea or sob. Objective: Vital Signs Temp Pulse Resp BP Pulse Ox 37 C 81 16 101/62 95 03/25/17 15:48 03/25/17 15:48 03/25/17 15:48 03/25/17 15:48 03/25/17 15:48 Microbiology 03/25/17 08:45 Gram Stain - Final Other - Tissue 03/25/17 08:45 Gram Stain - Final Other - Eswab 03/25/17 08:45 Mycobacterial Smear (JIM) - Final Other - Eswab Mycobacterial Culture - Final 03/24/17 03/25/17 03/26/17 05:59 05:59 05:59 Intake Total 840 820 Output Total 600 Balance 840 220 C-Reactive Protein 27.0 mg/L (<10.0) H 03/24/17 04:20 - Physical Exam General Appearance: alert, no apparent distress EENT: other (swelilng induration submandibular region. drain noted. tender along right mandible.) Respiratory: lungs clear Cardiac/Chest: regular rate, rhythm Extremities: No swelling Abdomen: normal bowel sounds, non-tender, soft, No distended Skin: erythema (minimal if any submandibular region) ICD10 Worksheet Patient Problems: Problems Problem Status Onset Cellulitis, face Acute
[2017-03-25] MEDS: GABAPENTIN 100 MG CAP PO SCH (20:29)
[2017-03-25] MEDS: AMITRIPTYLINE HCL 100 MG TAB PO SCH (20:29)
[2017-03-25] MEDS: CHLORHEXIDINE GLUCONATE 15 ML UDL PO SCH (20:30)
[2017-03-25] MEDS: PATCH REMOVAL 1 EA PATCH TD SCH (20:30)
[2017-03-26] MEDS: oxyCODONE IR 5 MG TAB PO PRN ×3 (02:36→21:35)
[2017-03-26] MEDS: PIPERACILLIN/TAZO 3.375 GM/DEX 50 ML IV SCH ×2 (05:41→12:35)
[2017-03-26] MEDS: CHLORHEXIDINE GLUCONATE 15 ML UDL PO SCH ×2 (09:04→21:35)
[2017-03-26] MEDS: CETIRIZINE 10 MG TAB PO SCH (09:04)
[2017-03-26] MEDS: FERROUS SULFATE 325 MG TAB PO SCH (09:05)
[2017-03-26] MEDS: DULoxetine 60 MG CAP PO SCH ×2 (09:05→21:35)
[2017-03-26] MEDS: DOCUSATE SODIUM 100 MG CAP PO SCH (09:05)
[2017-03-26] MEDS: FLUTICASONE NASAL 120 SPRAYS/16 GM MDI EACHNARE SCH (09:06)
[2017-03-26] MEDS: FLUTICASONE/SALMETER 250/50MCG DISKUS IH SCH ×2 (09:07→19:30)
[2017-03-26] MEDS: POTASSIUM CL 10 MEQ TAB PO SCH (09:08)
[2017-03-26] MEDS: PSYLLIUM METAMUCIL 1 PKT PO SCH (09:09)
[2017-03-26] MEDS: FUROSEMIDE 20 MG TAB PO SCH (09:22)
[2017-03-26] MEDS: LIDOCAINE 5% 1 EA PATCH TD SCH ×4 (09:22→21:35)
[2017-03-26] MEDS: LISDEXAMFETAMINE DIMESYLATE 30 MG PO SCH (09:23)
[2017-03-26] MEDS: LEVOTHYROXINE 50 MCG TAB PO SCH (09:30)
[2017-03-26] MEDS: IBUPROFEN 600 MG TAB PO PRN ×2 (12:42→21:36)
--- NOTE | 2017-03-26 15:24 | HOSPPROG ---
Hospitalist Progress Note Assessment/Plan: 56 yo F w/ hx of hypothyroid, asthma, neuropathy, TBI, and ADD presented to [facility] [place] [place] with facial cellulitis and likely underlying infection. Plan: 1. Facial cellulitis with osteo- Originating from odontogenic infection Patient initially noted infection on 02/21 and has had recurrent issues since. She was on clindamycin from 02/21 until 03/19. Just a few days after stopping antibiotics her symptoms returned. Amoxicillin did not help improver her symptoms. Blood cultures, Zosyn IV POD #1 Infectious disease following 2. Asthma - No e/o acute exacerbation. On Breo and albuterol PRN as outpatient. 3. Hx TBI - Complicated by ADD and insomnia. 4. OA- b/l knees 5. Hypothyroid - On LTX as outpatient. 6. Osteo- POD #1 drain out jaw cultures pending will likely need PICC and penitentiary IV abx Diet - regular Code - Full Ppx - SCDs Dispo -Will require IV abx cont supportive care Subjective: Up in the chair. Feels well. Objective: Vital Signs Temp Pulse Resp BP Pulse Ox 36.6 C 73 14 91/64 L 92 03/26/17 08:00 03/26/17 08:00 03/26/17 08:00 03/26/17 09:05 03/26/17 08:00 Microbiology 03/25/17 08:45 Mycobacterial Smear (JIM) - Final Other - Tissue 03/25/17 08:45 Gram Stain - Final Other - Eswab 03/25/17 08:45 Gram Stain - Final Other - Tissue 03/25/17 08:45 Mycobacterial Smear (JIM) - Final Other - Eswab Mycobacterial Culture - Final 03/25/17 03/26/17 03/27/17 05:59 05:59 05:59 Intake Total 840 2520 Output Total 1400 Balance 840 1120 - Physical Exam Constitutional: appears nourished, chronically ill appearing Eyes: PERRL, anicteric sclera Ears, Nose, Mouth, Throat: moist mucous membranes, hearing normal Cardiovascular: No JVD, No edema Respiratory: no respiratory distress, reduced air movement Gastrointestinal: No tenderness, No ascites Skin: warm, erythema Musculoskeletal: no joint effusions, generalized weakness Neurologic: AAOx3 Psychiatric: interacting appropriately, not anxious, not encephalopathic ICD10 Worksheet Patient Problems: Problems Problem Status Onset Cellulitis, face Acute
--- NOTE | 2017-03-26 15:58 | ASMTCMCOM ---
CM Note CM Note Notes: CM spoke w/ Patricia Flores, casework supervisor at the [facility]. CM provided updates. IV abx needs are TBD at ths time. CM spoke w/ Mai García NP (P#: [phone]) regarding d/c POC. CM sent most recently ID note to her via fax. CM to follow. Plan: TBD Date Signed: 03/26/2017 03:56 PM Electronically Signed By:DEVONTE Copeland
[2017-03-26] MEDS ORDERED: ALTEPLASE 2 MG VIAL IVP PRN (16:37)
[2017-03-26] MEDS ORDERED: AMPICILLIN/SULBACTAM 3 GM in NS 100 ML IV SCH (18:00)
--- NOTE | 2017-03-26 20:39 | PCMIDPN ---
Assessment/Plan: Assessment/Plan: * Submandibular abscess/probable mandibular osteomyelitis status post incision and drainage: Cultures remain no growth. Likely due to odontogenic megha and cultures may remain negative in the setting of prior antibiotic therapy. Will transition Zosyn to Unasyn with plans for ertapenem at time of hospital discharge for daily administration. Anticipate 6 week course of therapy with weekly CBC and CMP. Risks and benefits of PICC line and antibiotic use were discussed with patient today. Plan PICC line in a.m.. 03/26/17 20:37 Subjective: Patient feels better with improved range of motion of jaw. No rash or diarrhea. Objective: Vital Signs Temp Pulse Resp BP Pulse Ox 36.7 C 87 16 140/68 H 94 03/26/17 15:35 03/26/17 15:35 03/26/17 15:35 03/26/17 16:08 03/26/17 15:35 Microbiology 03/25/17 08:45 Mycobacterial Smear (JIM) - Final Other - Tissue 03/25/17 08:45 Gram Stain - Final Other - Eswab 03/25/17 08:45 Gram Stain - Final Other - Tissue 03/25/17 03/26/17 03/27/17 05:59 05:59 05:59 Intake Total 840 2520 Output Total 1400 300 Balance 840 1120 -300 C-Reactive Protein 27.0 mg/L (<10.0) H 03/24/17 04:20 Operative cultures no growth to date - Physical Exam General Appearance: alert, no apparent distress EENT: other (Right mandibular region swollen without overlying cellulitis; some ecchymosis present; trismus decreasing), No conjunctival petechiae Respiratory: lungs clear, No respiratory distress Cardiac/Chest: regular rate, rhythm, No systolic murmur Abdomen: non-tender, No distended ICD10 Worksheet Patient Problems: Problems Problem Status Onset Cellulitis, face Acute
[2017-03-26] MEDS: AMITRIPTYLINE HCL 100 MG TAB PO SCH (21:35)
[2017-03-26] MEDS: GABAPENTIN 100 MG CAP PO SCH (21:36)
[2017-03-27] MEDS: AMPICILLIN/SULBACTAM 3 GM in STERILE WATER INJ 8 ML IV SCH ×5 (00:30→23:43)
[2017-03-27] MEDS: LEVOTHYROXINE 50 MCG TAB PO SCH (05:50)
--- NOTE | 2017-03-27 08:12 | HOSPPROG ---
Hospitalist Progress Note Assessment/Plan: 56 yo F w/ hx of hypothyroid, asthma, neuropathy, TBI, and ADD presented to [facility] [place] with facial cellulitis and likely underlying infection. Today is my 1st encounter with the patient. Chart reviewed. Reviewed her care with Dr Hall. 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 osteomyelitis -originating from odontogenic infection -on Unasyn, had been on Zosyn -she will be discharged on ertapenem -will need 6 weeks of therapy with weekly CBCs and complete metabolic panels -PICC placed -status post I and D * asthma -stable * history of traumatic brain injury -stable *hx of recurrent falls -will need home care -her [facility] doctor adjusted her home meds which helped decrease her falling * osteo arthritis in knees * hypothyroidism *Plan: probable dc in a.m., ID physician to ask oral surgeon to come evaluate Subjective: AUGUSTUS is feeling better today but continues to have some swelling in her right jaw area Objective: Vital Signs Temp Pulse Resp BP Pulse Ox 36.6 C 84 16 102/61 93 03/26/17 22:02 03/26/17 22:02 03/26/17 22:02 03/26/17 22:02 03/26/17 22:02 Microbiology 03/25/17 08:45 Mycobacterial Smear (JIM) - Final Other - Tissue 03/25/17 08:45 Gram Stain - Final Other - Eswab 03/25/17 08:45 Gram Stain - Final Other - Tissue 03/26/17 03/27/17 03/28/17 05:59 05:59 05:59 Intake Total 2520 Output Total 1400 300 Balance 1120 -300 - Physical Exam Constitutional: no apparent distress, appears nourished, uncomfortable Eyes: PERRL Ears, Nose, Mouth, Throat: hearing normal Cardiovascular: regular rate and rhythym Respiratory: no respiratory distress Gastrointestinal: normoactive bowel sounds Skin: other (Swelling around the right jaw mandible area) Musculoskeletal: no muscle tenderness Neurologic: AAOx3 Psychiatric: interacting appropriately, not anxious, not encephalopathic ICD10 Worksheet Patient Problems: Problems Problem Status Onset Cellulitis, face Acute
[2017-03-27] MEDS: oxyCODONE IR 5 MG TAB PO PRN ×4 (09:06→23:10)
[2017-03-27] MEDS: FERROUS SULFATE 325 MG TAB PO SCH (09:07)
[2017-03-27] MEDS: FUROSEMIDE 20 MG TAB PO SCH (09:07)
[2017-03-27] MEDS: CETIRIZINE 10 MG TAB PO SCH (09:07)
[2017-03-27] MEDS: POTASSIUM CL 10 MEQ TAB PO SCH (09:07)
[2017-03-27] MEDS: DULoxetine 60 MG CAP PO SCH ×2 (09:07→21:27)
[2017-03-27] MEDS: CHLORHEXIDINE GLUCONATE 15 ML UDL PO SCH ×2 (09:08→21:28)
[2017-03-27] MEDS: IBUPROFEN 600 MG TAB PO PRN ×3 (09:14→23:11)
[2017-03-27] MEDS: FLUTICASONE NASAL 120 SPRAYS/16 GM MDI EACHNARE SCH (09:14)
[2017-03-27] MEDS: LISDEXAMFETAMINE DIMESYLATE 30 MG PO SCH (09:55)
[2017-03-27] MEDS: DOCUSATE SODIUM 100 MG CAP PO SCH (09:55)
[2017-03-27] MEDS: PSYLLIUM METAMUCIL 1 PKT PO SCH (09:56)
[2017-03-27] MEDS: PATCH REMOVAL 1 EA PATCH TD SCH (09:56)
[2017-03-27] MEDS: FLUTICASONE/SALMETER 250/50MCG DISKUS IH SCH ×2 (10:28→21:17)
[2017-03-27] MEDS: ALBUTEROL 60 PUFFS/8 GM MDI IH PRN ×2 (10:28→21:17)
--- NOTE | 2017-03-27 10:57 | PCMIDPN ---
Assessment/Plan: Assessment/Plan: 1. Right submandibular abscess with likely right mandible osteomyelitis: - s/p i & D and biopsy - Was on zosyn, now on unasyn. Change to invanz in AM so can get first dose here. - Awaiting cultures, path. - s/p picc line, -Plan for at least 6 weeks of iV therapy. f/u in office next week. -labs stable. - blood cx 03/23 ngtd -abscess cs: GS no org, culture ngtd. REviewed with patient. -Recommend f/u by oral surgery - care coordinated with hospitalist team and case management Meds unasyn 3g q6- 03/26 s/p zosyn 03/23-03/26 Subjective: feels ok. has some tenderness along right jaw line. drain out. some drainage noted. denies sob, abd pain. having loose stool. was taking stool softeners up until yesterday. Objective: Vital Signs Temp Pulse Resp BP Pulse Ox 36.7 C 93 16 120/79 92 03/27/17 08:00 03/27/17 10:29 03/27/17 10:29 03/27/17 08:00 03/27/17 10:29 Microbiology 03/25/17 08:45 Gram Stain - Final Other - Tissue 03/25/17 08:45 Gram Stain - Final Other - Eswab 03/25/17 08:45 Mycobacterial Smear (JIM) - Final Other - Tissue 03/26/17 03/27/17 03/28/17 05:59 05:59 05:59 Intake Total 2520 Output Total 1400 300 Balance 1120 -300 C-Reactive Protein 27.0 mg/L (<10.0) H 03/24/17 04:20 - Physical Exam General Appearance: alert, no apparent distress EENT: other (still with swelling right jaw line, submandibular regoin. induratin prsent. drainage with mild serosanguinous material. ) Cardiac/Chest: regular rate, rhythm Extremities: No swelling Abdomen: normal bowel sounds, non-tender, soft, No distended Skin: No rash - Time Spent With Patient Time Spent with Patient: greater than 35 minutes Time Spent with Patient: Greater than 35 minutes spent on this patients care, greater than 50% of time spent counseling, educating, and coordinating care regarding the above mentioned plan. ICD10 Worksheet Patient Problems: Problems Problem Status Onset Cellulitis, face Acute
--- NOTE | 2017-03-27 11:32 | SOAPPROG ---
SOAP Progress Note Assessment/Plan: Assessment: 2 days s/p incision and drainage right submandiublar area and debridement right mandible with extraction of tooth #27. Patient with resolving firmness of right mandibular vestibule. Surgicel at alveolar crest and sutures present. No gross drainage. Cultures consistent with patient being on long-term antibiotics. Plan: Continue antibiotics, consider PICC with 8 weeks antibiotic therapy due to progression of mandibular destruction. 03/27/17 11:29 Subjective: 2 days s/p I & D right submandibular region and debridement right mandible with extraction #27 for right facial cellulitis. Patient reports she feels less firmness of right cheek. Continues anesthesia of right lower lip/cheek/teeth to midline. Objective: Vital Signs Temp Pulse Resp BP Pulse Ox 36.7 C 93 16 120/79 92 03/27/17 08:00 03/27/17 10:29 03/27/17 10:29 03/27/17 08:00 03/27/17 10:29 Microbiology 03/25/17 08:45 Gram Stain - Final Other - Tissue 03/25/17 08:45 Mycobacterial Smear (JIM) - Final Other - Tissue 03/25/17 08:45 Gram Stain - Final Other - Eswab 03/25/17 08:45 Mycobacterial Smear (JIM) - Final Other - Eswab Mycobacterial Culture - Final 03/26/17 03/27/17 03/28/17 05:59 05:59 05:59 Intake Total 2520 Output Total 1400 300 Balance 1120 -300 E/O: Right lower facial edema and firmness. I/O: DESTINY - WNLs w/o pain. Right buccal vestibular fullness and firmness, surgicel at superior aspect of alveolar crest and sutures present. No drainage. FOM softer than yesterday and able to have bilateral palpation of FOM today. Neck: Right submandibular incision w/serosanginous drainage, softness around incision. Neuro: Right [place]STLEY anesthesia to mandibular midline. Weakness of right CNVII marginal mandibular branch. ICD10 Worksheet Patient Problems: Problems Problem Status Onset Cellulitis, face Acute
--- NOTE | 2017-03-27 11:56 | PDIAF ---
- Diagnosis Diagnosis: Right mandibular osteomyelitis Code Status: Full Code - Medication Management Discharge Medications: Medications to Continue on Transfer Levothyroxine Sodium [SYNTHROID] 50 mcg PO DAILY AT 10AM 01/26/10 [Last Taken ] Albuterol Hfa Anes Only [Proair Hfa Icu (RX)] 2 puffs IH QID PRN 10/09/11 [Last Taken 11/10/11 07:00] Fluticasone Nasal [Flonase Nasal [place] (RX)] 2 sprays NASAL DAILY 10/09/11 [ Last Taken 03/23/17] Fluticasone/Salmeterol [Advair 250-50 Diskus] 1 each IH BID 10/09/11 [Last Taken 03/23/17] Gabapentin [Neurontin 100 MG (RX)] 600 mg PO HS 10/09/11 [Last Taken 03/23/17] AMITRIPTYLINE HCL [Amitriptyline 100 mg] 100 mg PO HS 03/24/17 [Last Taken 03/23] Aspirin [Aspirin 81mg (*)] 81 mg PO DAILY 03/24/17 [Last Taken 03/23/17] Calcium Polycarbophil [FIBERCON] 625 mg PO DAILY 03/24/17 [Last Taken 03/23/17] DULoxetine [Cymbalta 60 MG (*)] 60 mg PO BID 03/24/17 [Last Taken 03/23/17] Docusate Sodium [Colace 100 MG (*)] 100 mg PO DAILY 03/24/17 [Last Taken ] Ferrous Sulfate [Ferrous Sulf 325 MG (*)] 325 mg PO DAILY 03/24/17 [Last Taken 03/23/17] Furosemide [Lasix 20 MG (*)] 20 mg PO DAILY 03/24/17 [Last Taken 03/23/17] Herbals/Supplements -Info Only 1 ea PO DAILY 03/24/17 [Last Taken Unknown] Hydrocodone/Acetaminophen [[place] 5/325 (*)] 1 - 2 tab PO Q6H PRN 03/24/17 [Last Taken 03/23/17] Ibuprofen [Motrin (*)] 600 mg PO TIDMEAL 03/24/17 [Last Taken 03/23/17] Lidocaine 5% [Lidoderm 5% Patch (*)] 2 ea TD HS 03/24/17 [Last Taken 03/24/17] Lisdexamfetamine Dimesylate [Vyvanse] 30 mg PO DAILY 03/24/17 [Last Taken ] Loratadine [Claritin] 10 mg PO DAILY 03/24/17 [Last Taken 03/23/17] [place]-3 Fatty Acids [Fish Oil 1000 mg (*)] 1,000 mg PO DAILY 03/24/17 [Last Taken 03/23/17] Potassium Chloride 10 meq PO DAILY 03/24/17 [Last Taken 03/23/17] clonIDINE [Catapres (*)] 0.1 mg PO TID 03/24/17 [Last Taken 03/23/17] Shelter Antibiotics: invanz 1g IV daily Shelter Antibiotic Stop Date: 05/09/17 Discharge Medications: Refer to the Discharge Home Medication list for PRN reason. PICC Care - Routine: Yes - Labs/Radiology CBC w/diff Date: 04/02/17 (qmonday) CMP Date: 04/02/17 (qmonday) CRP Date: 04/02/17 (qmonday) Call or Fax Lab and Imaging Results to: fax to Dr. Hall ([phone]) Infectious disease - Follow Up Care Current Providers and Referrals: Isabel Wynn MD [Primary Care Provider] - ( ) Charo Hall MD [Medical Doctor] - 04/02/17 9:00 am (f/u Dr. Hall (Infectious disease) on 04/02/17 at 9am. Check in time is at: 8:40am. Thank you.)
--- NOTE | 2017-03-27 16:39 | ASMTCMCOM ---
CM Note CM Note Notes: CM spoke w/ Dr. Hall and Vee Mckinney, oral surgeron regarding d/c POC. CM also spoke w/ Patricia Flores at [facility] and provided updates. CM left a msg for Mai García and sent PICC line report, ID notes from today and yesterday to her. Mai reports that she would want pt to come to their outpatient center for infusion. Mai is requesting that pt comes to [facility] outpatient infusion on the weekends. CM met w/ pt for dispo planning. CM informed pt of Mai's plan for weekday infusion. Pt is agreeable to coming to [facility] for weekend outpatient infusion. CM to follow. Plan: Weekday infusion at [facility] and Weekend infusion at [facility] outpatient infusion center Date Signed: 03/27/2017 04:38 PM Electronically Signed By:DEVONTE Copeland
[2017-03-27] MEDS: GABAPENTIN 100 MG CAP PO SCH (21:27)
[2017-03-27] MEDS: AMITRIPTYLINE HCL 100 MG TAB PO SCH (21:27)
[2017-03-27] MEDS: LIDOCAINE 5% 1 EA PATCH TD SCH (21:28)
[2017-03-28] MEDS: AMPICILLIN/SULBACTAM 3 GM in STERILE WATER INJ 8 ML IV SCH ×2 (05:02→13:40)
[2017-03-28] MEDS: LEVOTHYROXINE 50 MCG TAB PO SCH (05:03)
[2017-03-28] MEDS: CHLORHEXIDINE GLUCONATE 15 ML UDL PO SCH (08:25)
[2017-03-28] MEDS: FUROSEMIDE 20 MG TAB PO SCH (08:25)
[2017-03-28] MEDS: DULoxetine 60 MG CAP PO SCH (08:25)
[2017-03-28] MEDS: IBUPROFEN 600 MG TAB PO PRN ×2 (08:25→12:50)
[2017-03-28] MEDS: CETIRIZINE 10 MG TAB PO SCH (08:25)
[2017-03-28] MEDS: POTASSIUM CL 10 MEQ TAB PO SCH (08:25)
[2017-03-28] MEDS: FERROUS SULFATE 325 MG TAB PO SCH (08:26)
[2017-03-28] MEDS: PSYLLIUM METAMUCIL 1 PKT PO SCH (08:26)
[2017-03-28] MEDS: FLUTICASONE NASAL 120 SPRAYS/16 GM MDI EACHNARE SCH (08:26)
[2017-03-28] MEDS: LISDEXAMFETAMINE DIMESYLATE 30 MG PO SCH (08:26)
[2017-03-28] MEDS: DOCUSATE SODIUM 100 MG CAP PO SCH (08:27)
[2017-03-28] MEDS: PATCH REMOVAL 1 EA PATCH TD SCH (08:27)
[2017-03-28] MEDS: ALBUTEROL 60 PUFFS/8 GM MDI IH PRN (09:04)
[2017-03-28] MEDS: FLUTICASONE/SALMETER 250/50MCG DISKUS IH SCH (09:04)
[2017-03-28 09:19] VITALS: BP 106/65; PULSE 92; RESP 18; TEMP 98.1; O2SAT 96
--- NOTE | 2017-03-28 12:19 | HOSPPROG ---
Hospitalist Progress Note Assessment/Plan: 56 yo F w/ hx of hypothyroid, asthma, neuropathy, TBI, and ADD presented to [facility] with facial cellulitis and likely underlying infection. 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 osteomyelitis -originating from odontogenic infection -on Unasyn, had been on Zosyn -she will be discharged on ertapenem -will need 6 weeks of therapy with weekly CBCs and complete metabolic panels -PICC placed -status post I and D * asthma -stable * history of traumatic brain injury -stable *hx of recurrent falls -will need home care -her [facility] program doctor adjusted her home meds which helped decrease her falling * osteo arthritis in knees * hypothyroidism *Plan: dc today with [facility] f/u Subjective: mayte is feeling well, no complaints. Objective: Vital Signs Temp Pulse Resp BP Pulse Ox 36.7 C 92 18 106/65 96 03/28/17 09:18 03/28/17 09:18 03/28/17 09:18 03/28/17 09:18 03/28/17 09:18 Microbiology 03/25/17 08:45 Gram Stain - Final Other - Tissue 03/25/17 08:45 Gram Stain - Final Other - Eswab 03/25/17 08:45 Mycobacterial Smear (JIM) - Final Other - Tissue 03/25/17 08:45 Mycobacterial Smear (JIM) - Final Other - Eswab Mycobacterial Culture - Final 03/27/17 03/28/17 03/29/17 05:59 05:59 05:59 Intake Total 16 Output Total 300 Balance -300 16 - Physical Exam Constitutional: no apparent distress, appears nourished, not in pain Eyes: PERRL Ears, Nose, Mouth, Throat: hearing normal Respiratory: no respiratory distress Skin: warm, other (right jaw area w swelling) Musculoskeletal: full muscle strength Neurologic: AAOx3 Psychiatric: interacting appropriately ICD10 Worksheet Patient Problems: Problems Problem Status Onset Cellulitis, face Acute
--- NOTE | 2017-03-28 12:27 | PDIAF ---
- Diagnosis Diagnosis: Right mandibular osteomyelitis Code Status: Full Code - Medication Management Discharge Medications: Medications to Continue on Transfer Levothyroxine Sodium [SYNTHROID] 50 mcg PO DAILY AT 10AM 01/26/10 [Last Taken ] Albuterol Hfa Anes Only [Proair Hfa Icu (*)] 2 puffs IH QID PRN 10/09/11 [Last Taken 11/10/11 07:00] Fluticasone Nasal [Flonase Nasal [place]] 2 sprays NASAL DAILY 10/09/11 [Last Taken 03/23/17] Fluticasone/Salmeterol [Advair 250-50 Diskus] 1 each IH BID 10/09/11 [Last Taken 03/23/17] Gabapentin [Neurontin 100 MG (*)] 600 mg PO HS 10/09/11 [Last Taken 03/23/17] AMITRIPTYLINE HCL [Amitriptyline 100 mg] 100 mg PO HS 03/24/17 [Last Taken 03/23] Aspirin [Aspirin 81mg (*)] 81 mg PO DAILY 03/24/17 [Last Taken 03/23/17] Calcium Polycarbophil [FIBERCON] 625 mg PO DAILY 03/24/17 [Last Taken 03/23/17] DULoxetine [Cymbalta 60 MG (*)] 60 mg PO BID 03/24/17 [Last Taken 03/23/17] Docusate Sodium [Colace 100 MG (*)] 100 mg PO DAILY 03/24/17 [Last Taken ] Ferrous Sulfate [Ferrous Sulf 325 MG (*)] 325 mg PO DAILY 03/24/17 [Last Taken 03/23/17] Furosemide [Lasix 20 MG (*)] 20 mg PO DAILY 03/24/17 [Last Taken 03/23/17] Herbals/Supplements -Info Only 1 ea PO DAILY 03/24/17 [Last Taken Unknown] Hydrocodone/Acetaminophen [[place] 5/325 (*)] 1 - 2 tab PO Q6H PRN 03/24/17 [Last Taken 03/23/17] Ibuprofen [Motrin (*)] 600 mg PO TIDMEAL 03/24/17 [Last Taken 03/23/17] Lidocaine 5% [Lidoderm 5% Patch (*)] 2 ea TD HS 03/24/17 [Last Taken 03/24/17] Lisdexamfetamine Dimesylate [Vyvanse] 30 mg PO DAILY 03/24/17 [Last Taken ] Loratadine [Claritin] 10 mg PO DAILY 03/24/17 [Last Taken 03/23/17] [place]-3 Fatty Acids [Fish Oil 1000 mg (*)] 1,000 mg PO DAILY 03/24/17 [Last Taken 03/23/17] Potassium Chloride 10 meq PO DAILY 03/24/17 [Last Taken 03/23/17] clonIDINE [Catapres (*)] 0.1 mg PO TID 03/24/17 [Last Taken 03/23/17] Chlorhexidine Gluconate [Perisol] 15 ml MM BID #1 mouthwash 03/28/17 [Last Taken Unknown] Sld Educational Aide Antibiotics: invanz 1g IV daily Residential Antibiotic Stop Date: 05/09/17 Discharge Medications: Refer to the Discharge Home Medication list for PRN reason. PICC Care - Routine: Yes - Orders Services needed: Home Care, Registered Nurse, Physical Therapy, Occupational Therapy Home Care Face to Face: I certify that this patient was under my care and that I had the required [id number] encounter meeting the encounter requirements on the discharge day. My findings support the fact that the patient is homebound as defined in Home Care Face to Face Continued: CMS Chapter 7 Medicare Benefits Manual 30.1.1 , The condition of the patient is such that there exists a normal inability to leave home and consequently, leaving home would require a considerable and taxing effort. Diet Recommendation: no restrictions on diet Diet Texture: Regular Texture Diet - Labs/Radiology CBC w/diff Date: 04/02/17 (qmonday) CMP Date: 04/02/17 (qmonday) CRP Date: 04/02/17 (qmonday) Call or Fax Lab and Imaging Results to: fax to Dr. Hall ([phone]) Infectious disease - Follow Up Care Current Providers and Referrals: Isabel Wynn MD [Primary Care Provider] - ( ) Charo Hall MD [Medical Doctor] - 04/02/17 9:00 am (f/u Dr. Hall (Infectious disease) on 04/02/17 at 9am. Check in time is at: 8:40am. Thank you.)
--- NOTE | 2017-03-28 13:32 | GDS ---
[f rep st] DISCHARGE SUMMARY DISCHARGE DIAGNOSES: 1. Submandibular abscess/osteomyelitis. 2. Asthma. 3. History of traumatic brain injury. 4. History of recurrent falls. 5. Osteoarthritis of the knees. 6. Hypothyroidism. CONSULTATION: 1. Vee Mckinney DDS. 2. Charo Hall MD. HISTORY OF PRESENT ILLNESS: Briefly, the patient is a 56-year-old female who presented to the emerge ncy room with ongoing facial pain and swelling. Her history dates back to February 21. She had a dental procedure done at that time. A few days after that, she went to [facility] with increased swelling and pain. She had an I and D and was started on antibiotics and was discharged on clindamy segundo and had done well. She continued to have pain in the lower part of her right gum area and had 3 more teeth pulled out and was started on antibiotics. She had a CT of her neck done which showed boaz ency of the bone and absence of anterior inferior cortex, suggesting she had possible underlying oste omyelitis. She was admitted, treated with IV antibiotics, and has improved nicely. HOSPITAL COURSE: 1. Right submandibular abscess with likely right mandibular osteomyelitis. She will be discharged h ome and be on Invanz for approximately 6 weeks. She will further follow up with the Infectious team. A PICC is in place. She is status post I and D. 2. Asthma, stable. 3. History of traumatic brain injury, stable. 4. History of recurrent falls. She is on the [facility] Program. Her primary care provider has adjusted her home medications, which has helped decrease her from falling. 5. Osteoarthritis in her knees, which impacts her ability to walk. 6. Hypothyroidism, stable. DISCHARGE CONDITION: Stable. Blood pressure is 106/65, respiratory rate is 18, pulse is 92, tempera ture is 36.7 Celsius, O2 saturations on room air are 96%. MEDICATIONS AT DISCHARGE: Please see the EMR. DISCHARGE INSTRUCTIONS: 1. Further follow up with Dr. Hall in the outpatient setting. 2. Continued IV antibiotics as prescribed. 3. Follow up with Dr. Isabel Wynn, her PACE provider. BILLING: Greater than 30 minutes discharging and coordinating the patient's care. /[id number]/MODL
--- NOTE | 2017-03-28 15:52 | ASDISCHSUM ---
Discharge Information Plan Status:IV ABX/Infusion Medically Cleared to Leave:03/27/2017 Discharge Date:03/28/2017 02:45 PM CM D/C Disposition: ADT D/C Disposition:Home, Routine, Self-Care Projected Discharge Date:03/28/2017 11:00 AM Transportation at D/C: Discharge Delay Reason: Follow-Up Date:03/28/2017 11:00 AM Discharge Slot: Final Diagnosis: Placement Information Referral Type:Home Infusion Referral ID:[id number] Provider Name: Address 1: Phone Number: Address 2: Fax Number: City: Selection Factors: State: Patient Contact Information Contact Name:FLORENCIAPRAKASH Relationship: Address:[address] [place] [address] City:[facility] Phone: [facility]/Zip Code:[place] [address] Email: Financial Information Financial Class:HMO and PPO Plans Primary Plan Desc:JOSE JUAN GUSMAN Primary Plan Number:[id number] Secondary Plan Desc: Secondary Plan Number: Assessment Information [facility] CM Progress Note CM Note CM Note Notes: Pt. is a 56-year-old disabled woman admitted due to facial cellulitis from having an infection since February. Recently more teeth pulled. Hx. ADD, insomnia, TBI, and asthma. Pt. may need IV antibiotics at d/c. JOSE JUAN NASEEM patient. CM to follow for d/c POC. Date Signed: 03/24/2017 04:32 PM Electronically Signed By:Lilibeth King LCSW [facility] CM Progress Note CM Note CM Note Notes: Patient in surgery today for jaw infection. Likely to need fci IV antibiotics. Will place referrals for infusion services. CM to follow. Date Signed: 03/25/2017 11:36 AM Electronically Signed By:Sherita Olivia RN [facility] CM Progress Note CM Note CM Note Notes: CM spoke w/ Patricia Flores, spring encaser at the [facility] program. CM provided updates. IV abx needs are TBD at s time. CM spoke w/ Mai García NP (P#: [phone]) regarding d/c POC. CM sent most recently ID note to her via fax. CM to follow. Plan: TBD Date Signed: 03/26/2017 03:56 PM Electronically Signed By:DEVONTE Copeland [facility] DAYSI Progress Note CM Note CM Note Notes: CM spoke w/ Dr. Hall and cyn Gr surgesrini regarding d/c POC. CM also spoke w/ Patricia Flores at [facility] and provided updates. CM left a msg for Mai Rye and sent PICC line report, ID notes from today and yesterday to her. Mai reports that she would want pt to come to their outpatient center for infusion. Mai is requesting that pt comes to [facility] outpatient infusion on the weekends. CM met w/ pt for dispo planning. CM informed pt of Mai's plan for weekday infusion. Pt is agreeable to coming to [facility] for weekend outpatient infusion. CM to follow. Plan: Weekday infusion at [facility] and Weekend infusion at [facility] outpatient infusion center Date Signed: 03/27/2017 04:38 PM Electronically Signed By:DEVONTE Copeland Case Management Discharge Plan Note Case Management Discharge Discharge Order Complete? Answers: Yes Patient to Obtain Answers: Independently Medications Transportation Arranged Answers: Family/Friends EMTALA Complete Answers: No Case Management Transport Answers: No Form Complete Faxed Final Orders Answers: Yes Agency/Facility Transfer Answers: Yes Report Printed & Faxed to Receiving Agency Family Notified Answers: No Discharge Comments Notes: Pt is being discharged home with [facility] outpatient infusion. Pt will require 6 weeks of ivabx invanz 1gram daily. Pt is scheduled for tomorrow at 2:30PM. Going forth pt will be coming to the outpatient infusion center sunday-sunday 1PM. Pt will be getting outpatient infusion at 4:30PM on the weekends. CM spoke w/ Patricia at [facility] and they are requesting that oxycodone is discontinued and switched to norco. CM communicated this w/ Marilu Khalil NP. CM met w/ pt and discussed d/c plans. Pt reports that she will be transporting herslf to her outpatient appointments. DC paperwork faxed to [facility]. CM available for changes. Plan: Independent w/ outpatient infusion Date Signed: 03/28/2017 12:35 PM Electronically Signed By:DEVONTE Copeland Intervention Information
== END 2017-03-28 14:45 | disposition home or self-care (01) | DRG 603 ==
LOC: CED 20:14 → CEDHOLD 22:33 → F3E 03-24 00:26 → INTOOBSV 03-24 13:49 → OBSVTOIN 03-24 13:49
PROVIDERS: ADMIT Student in an Organized Health Care Education/Training Program; ATTEND Student in an Organized Health Care Education/Training Program
PROC: 0C9 Mouth and Throat, Drainage (ICD-10-PCS; principal; 2017-03-25 08:00)
PROC: 0CTW0Z0 Resection of Upper Tooth, Single, Open Approach (ICD-10-PCS; principal; 2017-03-25 08:00)
DX: L03.211 Cellulitis of face (principal); M27.2 Inflammatory conditions of jaws; J45.909 Unspecified asthma, uncomplicated; M17.0 Bilateral primary osteoarthritis of knee; E03.9 Hypothyroidism, unspecified; Z87.820 Personal history of traumatic brain injury; Z91.81 History of falling; Z87.891 Personal history of nicotine dependence
CPT/HCPCS: 70491-PO; 80048-PO; 85025-PO; 96374; 97116-GP; 97161-GP; C1751; G0378; J0171; J0295; J1170; J2001; J2250; J2543; J2704; J3010; Q9967

== ENCOUNTER → 2017-05-22 | Outpatient (CLI) | payer OTHER ==
[~2017-05-22] MED LIST: IOPAMIDOL (ISOVUE-300) 100 ML BTL ONE
== END ==
LOC: FIMAGING 13:31
DX: S02.601A Fracture of unspecified part of body of right mandible, initial encounter for closed fracture (principal); M84.88 Other disorders of continuity of bone, other site
CPT/HCPCS: Q9967

== ENCOUNTER → 2017-10-21 | Outpatient (CLI) | payer OTHER | LOC: FCPNEURO 21:00 | PROVIDERS: ATTEND Student in an Organized Health Care Education/Training Program | DX: G47.61 Periodic limb movement disorder (principal) ==

== ENCOUNTER 2017-11-02 18:39 | Emergency (ER) | payer OTHER ==
[2017-11-02] MEDS ORDERED: OXYCODONE/APAP 5/325 TAB PO ONE (19:20)
--- NOTE | 2017-11-02 19:25 | EDPHY ---
H & P Stated Complaint: fall, left knee injury/contusion left forehead. no LOC Time Seen by Provider: 11/02/17 19:12 HPI/ROS: CHIEF COMPLAINT: Left knee pain, head injury HISTORY OF PRESENT ILLNESS: 57-year-old female history of frequent falls, she was by herself in a house, arrives by ambulance after a mechanical fall. She was going down stairs, missed the last step and tripped and landed on her left knee and also impacted her left frontal region. There are no prolonged periods of immobility on the floor. She was able to get herself up and summon EMS. She is complaining of headache and left knee pain. She denies: Loss of consciousness, alcohol or drug use, midline C-spine pain, nausea, vomiting, peripheral paresthesia, weakness, numbness, straddle injury, abdominal pain, chest pain, dyspnea, syncope. PRIMARY CARE PROVIDER: Dr. Wynn REVIEW OF SYSTEMS: 10 systems reviewed and negative with the exception of the elements mentioned in the history of present illness PAST MEDICAL/SURGICAL HISTORY: no anticoagulant use, frequent falls. Traumatic brain injury history. Hypothyroidism. Asthma. Up-to-date tetanus SOCIAL HISTORY: denies alcohol use at time of incident PHYSICAL EXAM 1) GENERAL: Well-developed, well-nourished, alert and oriented. Appears to be in no acute distress. Answering questions appropriately. GCS 15 2) HEAD: Normocephalic, left frontal ecchymosis. 3) HEENT: Pupils equal, round, reactive to light bilaterally. Negative Horners. Nasopharynx, oropharynx, clear. No deformity or angulation of nose. No septal hematoma. No rhinorrhea. No oral trauma. Ears bilaterally with normal tympanic membranes. No hemotympanum. No fluid or blood in the external auditory canal. No raccoon eyes. No Jacome sign. Teeth are normally aligned with no gross malocclusion, TMJ bilaterally nontender, facial bones nontender including the zygomatic arch, maxilla mandible. 4) NECK: No cervical collar is on. Posterior cervical spine is nontender, no stepoff, no effusion. Full range of motion which does not elicit any midline cervical spine pain, no posterior midline tenderness, no step-off. 5) LUNGS: Clear to auscultation bilaterally, no wheezes, no rhonchi, no retractions. No obvious signs of trauma. No chest wall pain. No flaring, no grunting. Moving symmetrically. No crepitus. 6) HEART: [Regular rate and rhythm, 7) ABDOMEN: No guarding, no rebound, no focal tenderness, no peritoneal signs, no signs of trauma, no ecchymosis 8) MUSCULOSKELETAL: Left lower extremity: Abrasion to left anterior knee with periarticular ecchymosis. No pain with axial loading. Pain with flexion beyond 90 degrees. Full extension which is pain free. No visible deformity or angulation. No shortening. Proximally distally nontender. Soft compartments. DP PT pulses present and brisk distally. Brisk capillary refill. Normal color temperature distally. Otherwise, Moving all extremities, no focal areas of tenderness, no obvious trauma. 9) BACK: No midline vertebral tenderness, no fluctuance, no step-off, no obvious trauma, no visual or palpable abnormality. 10) SKIN: No laceration. DIFFERENTIAL DIAGNOSIS: Not necessarily in any particular order, my differential diagnosis includes, but is not limited to, concussion, skull fracture, intraparenchymal contusion, subarachnoid, subdural and epidural hematoma. The patient understands that this diagnosis is provisional and can never be 100% accurate. - Personal History Current Tetanus/Diphtheria Vaccine: Yes Current Tetanus Diphtheria and Acellular Pertussis (TDAP): Yes Tetanus Vaccine Date: 2011 - Medical/Surgical History Hx Asthma: Yes Hx Chronic Respiratory Disease: Yes Hx Diabetes: No Hx Cardiac Disease: No Hx Renal Disease: No Hx Cirrhosis: No Hx Alcoholism: No Hx HIV/AIDS: No Hx Splenectomy or Spleen Trauma: No Other PMH: hypothyroid, L hip fibro-osseous removal, left hip bursa, chronic pain, asthma, nicorette addiction. arthritis, djd, L4-5, S1 fusion, balance issues (partially from meds, prevous chi) ADD, hypothyroid,. bronchoscopy for aspiration of medication - Social History Smoking Status: Former smoker Constitutional: Initial Vital Signs Temperature (C) 36.7 C 11/02/17 18:59 Heart Rate 94 11/02/17 18:59 Respiratory Rate 18 11/02/17 18:59 Blood Pressure 124/88 H 11/02/17 18:59 O2 Sat (%) 93 11/02/17 18:59 O2 Delivery Mode Room Air Allergies/Adverse Reactions: Sulfa (Sulfonamide Antibiotics) Allergy (Intermediate, Verified 03/23/17 20:35) Hives Home Medications: Medication Instructions Recorded Levothyroxine Sodium [SYNTHROID] 50 mcg PO DAILY AT 10AM 01/26/10 Albuterol Hfa Anes Only [Proair 2 puffs IH QID PRN 10/09/11 Hfa Icu (*)] Fluticasone Nasal [Flonase Nasal 2 sprays NASAL DAILY 10/09/11 [place]] Gabapentin [Neurontin 100 MG (*)] 300 mg PO HS 10/09/11 AMITRIPTYLINE HCL [Amitriptyline 100 mg PO HS 03/24/17 100 mg] Calcium Polycarbophil [FIBERCON] 625 mg PO DAILY 03/24/17 DULoxetine [Cymbalta 60 MG (*)] 60 mg PO BID 03/24/17 Docusate Sodium [Colace 100 MG (*)] 100 mg PO DAILY 03/24/17 Ferrous Sulfate [Ferrous Sulf 325 325 mg PO DAILY 03/24/17 MG (*)] Herbals/Supplements -Info Only 1 ea PO DAILY 03/24/17 Lidocaine 5% [Lidoderm 5% Patch] 2 ea TD HS 03/24/17 Loratadine [Claritin] 10 mg PO DAILY 03/24/17 [place]-3 Fatty Acids [Fish Oil 1000 1,000 mg PO DAILY 03/24/17 mg (*)] Chlorhexidine Gluconate [Perisol] 15 ml MM BID #1 mouthwash 03/28/17 Fluconazole 200mg Po Bid 04/19/17 Fluticasone/Vilanterol [Breo 1 inh DAILY 05/03/17 Ellipta 100-25 Mcg INH] Aspirin 6 X 325mg Asa 05/14/17 Lisdexamfetaminedimesylate Prn 05/14/17 Medical Decision Making - Diagnostics Imaging Results: Imaging Impressions Knee X-Ray 11/02/17 19:18 Impression: 1. Negative for acute fracture. 2. Prominent degenerative changes most severe involving the patellofemoral compartment which have progressed significantly since 2013. 3. A joint effusion is suspected. 4. Increased attenuation in the soft tissues medially presumably represents a hematoma. Head CT 11/02/17 19:19 Impression: 1. Negative for hemorrhage or other acute posttraumatic abnormality. 2. Suspect atrophy and probable small vessel disease. 3. See above report for additional findings. Results called and discussed with Dana Chapman EA on 11/02/2017 at 19:46. Images reviewed myself ED Course/Re-evaluation: 7:25 p.m.: Head CT ordered in this patient for trauma for the following indication: severe headache. Indications risks benefits of imaging discussed with patient she consents. Will also obtain imaging of the left knee. Patient requests opiate analgesia at this time for pain. She has a history of frequent falls and she was informed that opiates will produce ulceration her judgment. She verbalized understanding this but states that she is willing to accept this risk for some pain control. No evidence of compartment syndrome at this time. I saw this patient independently based on established practice protocols. Care of patient under supervision of secondary supervising physician Dr Putnam . 8:30 p.m.: Re-evaluation with serial exams. Discussed her negative imaging results. Discussed limitations of plain film imaging of the knee. At this time I do not think that emergent MRI is indicated. She has been observed ambulating with stable steady gait with no assistance. I have offered admission however she states that she feels safe and comfortable being discharged and states that she feels that she is able to take care for self. Recommend orthopedic follow-up in given this referral information. My usual and customary head injury and orthopedic precautions and instructions provided. - Data Points Medications Given: Discontinued Medications Oxycodone/Acetaminophen (Percocet 5/325) 1 tab PO EDNOW ONE Stop: 11/02/17 19:21 Last Admin: 11/02/17 19:31 Dose: 1 tab Departure - Departure Disposition: Home, Routine, Self-Care Clinical Impression: Left knee pain Qualifiers: Chronicity: acute Qualified Code(s): M25.562 - Pain in left knee Head injury due to trauma Qualifiers: Encounter type: initial encounter Qualified Code(s): S09.90XA - Unspecified injury of head, initial encounter Condition: Good Instructions: Head Injury (ED), Knee Pain (ED), Narcotic-Analgesic/ Acetaminophen (By mouth) Additional Instructions: Return to the ER immediately if you experience discoloration, have worsening pain, numbness, tingling, or any other symptoms that concern you. If you received x-rays in the emergency department today, be advised, that ligamentous , tendon, muscular, and other non-bony injury cannot be fully ruled out. Try to keep your affected extremity elevated above the level of your chest, and keep cold packs on the affected area, for the next 48 hours. ALTHOUGH THERE IS NO EVIDENCE OF SERIOUS HEAD INJURY AT THIS TIME, DELAYED SIGNS CAN APPEAR 24 TO 48 HOURS AFTER INJURY. PLEASE RETURN TO THE EMERGENCY DEPARTMENT (ED) IMMEDIATELY IF YOU HAVE INCREASED HEADACHE, PERSISTENT HEADACHE , VOMITING, WEAKNESS, CONFUSION OR VISUAL PROBLEMS. WE RECOMMEND THAT YOU DO NOT RESUME CONTACT SPORTS OR ACTIVITIES THAT TAKE COORDINATION OR BALANCE SUCH SKIING OR RIDING A BICYCLE UNTIL CLEARED TO DO SO BY YOUR DOCTOR OR BY A NEUROLOGIST. Referrals: Isabel Wynn MD [Primary Care Provider] - As per Instructions Santiago Balderrama MD [Medical Doctor] - 2-3 days, call for appt. (Dr. Glenn balderrama is orthopedic surgeon)
[2017-11-02] MEDS ORDERED: HYDROCOD/APAP 5/325 PREPACK#6 BTL TAKEHOME ONE (20:38)
[2017-11-02 20:59] VITALS: BP 140/85
== END 2017-11-02 20:59 | disposition home or self-care (01) ==
LOC: EDUNIT#
DX: S89.92XA Unspecified injury of left lower leg, initial encounter (principal); S09.90XA Unspecified injury of head, initial encounter; W10.8XXA Fall (on) (from) other stairs and steps, initial encounter

== ENCOUNTER → 2018-02-01 | Outpatient (CLI) | payer OTHER | LOC: CIMAGING 14:10 | PROVIDERS: ATTEND Internal Medicine Geriatric Medicine | DX: Z12.31 Encounter for screening mammogram for malignant neoplasm of breast (principal); Z80.3 Family history of malignant neoplasm of breast ==

== ENCOUNTER → 2018-02-08 | Outpatient (CLI) | payer OTHER | LOC: CIMAGING 11:50 | PROVIDERS: ATTEND Nurse Practitioner Family | DX: R10.2 Pelvic and perineal pain (principal); M85.89 Other specified disorders of bone density and structure, multiple sites; M25.552 Pain in left hip | CPT/HCPCS: 72190-PO; 73501-PO ==

== ENCOUNTER → 2018-02-15 | Outpatient (CLI) | payer OTHER | LOC: CIMAGING 12:38 | PROVIDERS: ATTEND Nurse Practitioner Family | DX: M48.56XA Collapsed vertebra, not elsewhere classified, lumbar region, initial encounter for fracture (principal); Z98.1 Arthrodesis status | CPT/HCPCS: 72100-PO ==

== ENCOUNTER → 2018-03-01 | Outpatient (CLI) | payer OTHER | LOC: CIMAGING 12:19 | PROVIDERS: ATTEND Nurse Practitioner Family | DX: M25.552 Pain in left hip (principal) | CPT/HCPCS: 73501-PO ==

== ENCOUNTER → 2018-04-17 | Outpatient (CLI) | payer OTHER ==
[~2018-04-17] MED LIST changes: +DEPO METHYLPREDNISOLONE 40 MG/ML SDV ONE; +GADOBUTROL 10 ML VIAL IVP ONE; -IOPAMIDOL (ISOVUE-300) 100 ML BTL ONE; +IOPAMIDOL (ISOVUE-370) 150 ML BTL IV ONE; +LIDOCAINE 1% 300 MG/30 ML SDV ONE; +ROPIVACAINE HCL 150 MG/30 ML INJ ONE; +TRIAMCINOLONE ACETONIDE 40 MG/ML VIAL ONE
== END ==
LOC: FIMAGING 10:11
PROVIDERS: ATTEND Nurse Practitioner Family
DX: M25.552 Pain in left hip (principal)
CPT/HCPCS: A9585; J1030; J2795; J3301; Q9967

== ENCOUNTER 2018-05-14 08:21 | Day surgery (SDC) | payer OTHER ==
[2018-05-14] MEDS ORDERED: LR 1,000 ML IV ONE (08:42)
[2018-05-14] MEDS ORDERED: LIDOCAINE 1% 2 ML INJ ID PRN (08:42)
--- NOTE | 2018-05-14 09:10 | PDANEPAE ---
ANE History of Present Illness 58 year old female with history of colon polyp for colonoscopy. History of chronic pain and failed back. ANE Past Medical History - Cardiovascular History Hx Hypertension: No Hx Arrhythmias: No Hx Chest Pain: No Hx Coronary Artery / Peripheral Vascular Disease: No Hx CHF / Valvular Disease: Yes Hx Palpitations: No - Pulmonary History Hx COPD: No Hx Asthma/Reactive Airway Disease: Yes Hx Recent Upper Respiratory Infection: No Hx Oxygen in Use at Home: Yes O2 in Use at Home (L/minute): 3 Hx Sleep Apnea: No Sleep Apnea Screening Result - Last Documented: Negative Pulmonary History Comment: NOCTURNAL HYPOXEMIA HS OXYGEN. PREV ANNETTA TESTING NEG FOR ANNETTA. NICOTINE LOZENGES. EXERCISE INDUCED ASTHMA,ENVIRONMENTAL TRIGGERS - Neurologic History Hx Cerebrovascular Accident: No Hx Seizures: No Hx Dementia: No - Endocrine History Hx Diabetes: No Endocrine History Comment: HYPOTHYROID - Renal History Hx Renal Disorders: No - Liver History Hx Hepatic Disorders: No - Neurological & Psychiatric Hx Hx Neurological and Psychiatric Disorders: Yes Neurological / Psychiatric History Comment: ADD - Cancer History Hx Cancer: No - Congenital Disorder History Hx Congenital Disorders: No - GI History Hx Gastrointestinal Disorders: Yes Gastrointestinal History Comment: HX OF POLYPS - Other Health History Other Health History: CHRONIC PAIN. ECZEMA LAZ EAR. INTERMITTENT ANEMIA. LT FEMORAL CYST RECENT STEROID INJECTION. COMPRESSION FX L1-3 02/2018. DJD. OSTEOARTHRITIS. LAZ FOOT NEUROPATHY - Chronic Pain History Chronic Pain: Yes (LOWER BACK AND LT LEG) - Surgical History Prior Surgeries: I&D MANDIBLE 03/24/17. RECONSTRUCTION JAW 06/2017. LUMBAR FUSION. REMVL EXCESS BONE SIATICA. BRONCHOSCOPY ANE Review of Systems Review of systems is: negative Review of Systems: - Exercise capacity METS (RN): 4 METS ANE Patient History - Allergies Allergies/Adverse Reactions: Sulfa (Sulfonamide Antibiotics) Allergy (Intermediate, Verified 03/23/17 20:35) Hives - Home Medications Home Medications: Levothyroxine Sodium [SYNTHROID] 50 mcg PO DAILY AT 10AM 01/26/10 [Last Taken ] Albuterol Hfa Anes Only [Proair Hfa Icu (*)] 2 puffs IH QID PRN 10/09/11 [Last Taken 11/10/11 07:00] Fluticasone Nasal [Flonase Nasal [place]] 2 sprays NASAL DAILY 10/09/11 [Last Taken 03/23/17] DULoxetine [Cymbalta 60 MG (*)] 60 mg PO HS 03/24/17 [Last Taken 03/23/17] Herbals/Supplements -Info Only 1 ea PO DAILY 03/24/17 [Last Taken Unknown] Lidocaine 5% [Lidoderm 5% Patch] 2 ea TD HS 03/24/17 [Last Taken 03/24/17] Fluticasone/Vilanterol [Breo Ellipta 100-25 Mcg INH] 1 inh DAILY 05/03/17 [Last Taken Unknown] Aspirin 6 X 325mg Asa DAILY 05/14/17 [Last Taken Unknown] Fosamax 70 MG (*) ONCE 05/03/18 [Last Taken Unknown] MIRTAZAPINE HS 05/03/18 [Last Taken Unknown] [place] 5-325 Tablet TID 05/03/18 [Last Taken Unknown] Tizanidine HCl HS 05/03/18 [Last Taken Unknown] - Smoking Hx Smoking Status: Former smoker ANE Labs/Vital Signs - Vital Signs Height: 170.18 cm Weight: 105.687 kg ANE Physical Exam - Airway Neck exam: FROM Mallampati Score: Class 2 Mouth exam: normal dental/mouth exam - Pulmonary Pulmonary: no respiratory distress - Cardiovascular Cardiovascular: regular rate and rhythym - ASA Status ASA Status: II ANE Anesthesia Plan Anesthesia Plan: MAC
[2018-05-14] MEDS ORDERED: MIDAZOLAM 2 MG/2 ML VIAL ONE (09:11)
[2018-05-14] MEDS ORDERED: PROPOFOL 200 MG/20 ML VIAL ONE ×2 (09:12→09:29)
--- NOTE | 2018-05-14 09:17 | PDGENHP ---
History & Physical Chief Complaint: phx polyps History of Present Illness: colon 5 yers ago with non advnaced adenoma Pertinent Past, Social, Family History: hypoxemia at night with 4 liters. hypothyroid. no fhx cc Relevant Physical Exam: A+Ox3. CTA. S1S2. +BS soft nt Cardiorespiratory Assessment: class 2
[2018-05-14] MEDS ORDERED: NALOXONE HCL 0.4 MG/ML INJ IVP PRN (09:22)
[2018-05-14] MEDS ORDERED: fentaNYL 100 MCG/2 ML INJ IVP PRN (09:22)
[2018-05-14] MEDS ORDERED: HYDROCODONE/APAP 5/325 TAB PO PRN (09:22)
[2018-05-14] MEDS ORDERED: fentaNYL 100 MCG/2 ML INJ ONE (09:33)
--- NOTE | 2018-05-14 09:45 | POSTANESTH ---
Post Anesthetic Evaluation Cardiovascular Status: Normal, Stable Respiratory Status: Normal, Stable Level of Consciousness/Mental Status: Mildly Sleepy, Arousable Pain Control: Adequate, Prn Tx Ordered Nausea/Vomiting Control: Adequate, Prn Tx Ordered Complications Possibly Related to Anesthesia: None Noted
--- NOTE | 2018-05-14 09:52 | GIREPORT ---
[facility] Surgical Services - Endoscopy Department Patient Name: Bonny Riech Procedure Date: 05/14/2018 9:14 AM Patient Type: Outpatient Attending MD/ ER Physician: Zeb Fitzgerald MD Procedure: Colonoscopy Indications: High risk colon cancer surveillance: Personal history of non-advanced adenoma, High risk colon cancer surveillance: Personal history of adeno ma less than 10 mm in size Providers: Zeb Fitzgerald MD Referring MD: Isabel Wynn MD Medicines: Propofol per Anesthesia = IV general with spont resps Complications: No immediate complications. Estimated blood loss: None. Description of Procedure: After obtaining informed consent, the scope was passed under direct vis ion. Throughout the procedure, the patient's blood pressure, pulse, and oxyg en saturations were monitored continuously. The Colonoscope with irrigatio n channel was introduced through the anus and advanced to the cecum, identified by the appendiceal orifice, ileocecal valve and palpation. T he colonoscopy was performed without difficulty. The patient tolerated the procedure well. The quality of the bowel preparation was good. Findings: The digital rectal exam was normal. A few medium-mouthed diverticula were found in the sigmoid colon. The exam was otherwise without abnormality. Estimated Blood Loss: Estimated blood loss: none. Post Op Diagnosis: - Diverticulosis in the sigmoid colon. - The examination was otherwise normal. - No specimens collected. Recommendation: - High fiber diet indefinitely. - 30-35 grams of dietary fiber per day. Can use supplemental fiber. - A high fiber diet may decrease risk of complications from diverticulo sis. There is no need to avoid seeds or nuts. - Repeat colonoscopy in 5 years for surveillance. - Patient has a contact number available for emergencies. The signs and symptoms of potential delayed complications were discussed with the pat ient. Return to normal activities tomorrow. Written discharge instructions we re provided to the patient. - Continue present medications. - Discharge patient to home (ambulatory). - Return to primary care physician as previously scheduled. - Thank you for allowing me to help in your patient's care. Do not hesi william to call with any questions. Attending Participation: I personally performed the entire procedure. Amilcar Bates M.D Zeb Fitzgerald MD 05/14/2018 9:52:20 AM This report has been signed electronicallyMattheclint Fitzgerald MD Number of Addenda: 0 Note Initiated On: 05/14/2018 9:14 AM Total Procedure Duration Time 0 hours 14 minutes 3 seconds [email or web address]
[2018-05-14 11:20] VITALS: BP 140/83
== END 2018-05-14 11:21 | disposition home or self-care (01) ==
LOC: FSGY 08:21
PROVIDERS: ATTEND Internal Medicine Gastroenterology
PROC: 0DJD8ZZ Inspection of Lower Intestinal Tract, Via Natural or Artificial Opening Endoscopic (ICD-10-PCS; principal; 2018-05-14 10:15)
DX: Z86.010 Personal history of colon polyps (principal); K57.30 Diverticulosis of large intestine without perforation or abscess without bleeding; R09.02 Hypoxemia; E03.9 Hypothyroidism, unspecified; M51.86 Other intervertebral disc disorders, lumbar region
CPT/HCPCS: J2250; J2704; J3010

== ENCOUNTER → 2018-05-30 | Outpatient (CLI) | payer OTHER | LOC: FIMAGING 09:06 | PROVIDERS: ATTEND Nurse Practitioner Family | DX: Z13.820 Encounter for screening for osteoporosis (principal); M85.89 Other specified disorders of bone density and structure, multiple sites; S32.000D Wedge compression fracture of unspecified lumbar vertebra, subsequent encounter for fracture with routine healing; Z98.1 Arthrodesis status; E03.9 Hypothyroidism, unspecified; Z79.899 Other long term (current) drug therapy; Z78.0 Asymptomatic menopausal state; Z91.81 History of falling ==